=== PATIENT | female | born 1935 | race Caucasian/White ===

== ENCOUNTER 2016-11-12 10:37 | Emergency (ER) | payer OTHER, MEDICARE ==
--- NOTE | 2016-11-12 10:47 | EDM.PDOC ---
ED HPI GENERAL MEDICAL PROBLEM - General Chief Complaint: Trauma Stated Complaint: TRIPPED OVER RUG, HUGE LUMP OVER RT EYE Time Seen by Provider: 11/12/16 10:46 Source of Information: Reports: Patient, Family, RN, RN Notes Reviewed History Limitations: Reports: No Limitations - History of Present Illness INITIAL COMMENTS - FREE TEXT/NARRATIVE: Arrived from home by POV with c/o a head injury sustained at work from a ground level fall approx. 1 hour ago. Pt states that she did not have a LOC. She tripped in her home and hit her head on the floor. She could not get up on her own, but had her phone with her and called 911 and called her son. Pt declined ambulance transfer and came to the ER ambulatory arriving to registration at 1037HRS. Pt was brought to triage in ER and it was determined that pt is anticoagulated on Plavix, at which time the RN made the pt a Trauma Code at 1044HRS. Pt denies N/V, neck or back pain, visual changes, leak of clear or bloody fluid from the ears or nose, or any other injuries. Onset: Today Onset Date: 11/12/16 Duration: Constant Location: Reports: Head, Face Quality: Reports: Ache Severity: Moderate Improves with: Reports: None Worsens with: Reports: None Context: Reports: Trauma Associated Symptoms: Reports: No Other Symptoms - Related Data Allergies Allergy/AdvReac Type Severity Reaction Status Date / Time atorvastatin calcium Allergy Unknown Swelling Verified 04/10/16 09:34 [From Lipitor] diphtheria,pertussis Allergy Unknown Itching Verified 04/10/16 09:34 (acellular),te [From Adacel(Tdap Adolesn/Adult)(PF)] fluvastatin Allergy Unknown UNKNOWN Verified 04/10/16 09:34 quinapril HCl [From Accupril] Allergy Unknown UNKNOWN Verified 04/10/16 09:34 rosuvastatin calcium Allergy Unknown UNKNOWN Verified 04/10/16 09:34 [From Crestor] CALCIUM CONTAINING COMPOUNDS Allergy Unknown UNKNOWN Uncoded 04/10/16 09:34 Home Meds: Home Meds Acetaminophen 650 mg PO Q4H PRN 02/24/16 [History] Clopidogrel [Plavix] 75 mg PO DAILY 02/24/16 [History] Cranberry Conc/C/Bacill Coag [Cranberry Tablet] 1 tab PO BID 02/24/16 [History] Ergocalciferol (Vitamin D2) [Vitamin D] 1 tab PO DAILY 02/24/16 [History] Ezetimibe/Simvastatin [Vytorin 10-20 mg Tablet] 1 tab PO DAILY 02/24/16 [History ] Ferrous Sulfate 325 mg PO DAILY 02/24/16 [History] Glimepiride [Amaryl] 4 mg PO BID 02/24/16 [History] Insulin Glargine,Hum.Rec.Anlog [Lantus Solostar] 24 units SQ BEDTIME 02/24/16 [ History] Multivitamin [Multivitamins] 1 tab PO DAILY 02/24/16 [History] Sertraline [Zoloft] 25 mg PO DAILY 02/24/16 [History] Calcium Carb/Vitamin D3/Vit K1 [Viactiv Soft Chew] 1 tab PO BID 03/20/16 [ History] Valsartan [Diovan] 160 mg PO DAILY 03/20/16 [History] Furosemide [Furosemide] 20 mg PO DAILY 04/02/16 [History] Potassium Chloride [Klor-Con M20] 10 meq PO DAILY 04/02/16 [History] Past Medical History HEENT History: Reports: Other (See Below) Other HEENT History: hx of nose bleeds- is on plavix Cardiovascular History: Reports: Heart Failure, Hypertension, OK, Stents Other Cardiovascular History: OK on 02/24/16 Respiratory History: Reports: None Gastrointestinal History: Reports: Diverticulosis, Hemorrhoids Genitourinary History: Reports: Chronic Renal Insuffiency, UTI, Recurrent, Other (See Below) Other Genitourinary History: CKD Stage 3 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 Musculoskeletal History: Reports: Gout Neurological History: Reports: Other (See Below) Psychiatric History: Reports: Depression Endocrine/Metabolic History: Reports: Diabetes, Type I Hematologic History: Reports: Anemia Immunologic History: Reports: None Oncologic (Cancer) History: Reports: Other (See Below) Other Oncologic History: Adenocarcinoma NOS Dermatologic History: Reports: None - Infectious Disease History Infectious Disease History: Reports: Chicken Pox, Measles, Mumps - Past Surgical History Head Surgeries/Procedures: Reports: None Respiratory Surgical History: Reports: Lung Resection Other Respiratory Surgeries/Procedures: 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 ED EXAM, GENERAL - Physical Exam Exam: See Below Free Text/Narrative:: PRIMARY TRAUMA SURVEY: Arrives by POV without immobilization on long spinal board, c-collar, and without head blocked or strapped for immobilization. A C- collar was promptly applied by the RN. Pt awake, alert, oriented to person, place, and date. Patent nasal and oral airways. Conversant with clear speech. Spontaneous respirations, with lungs CTA B/L. Good color, no cyanosis, intact peripheral pulses at all 4 distal extremities, normal capillary refill time at all four extremities distal digits. Heart RRR, no murmur, no rub. No bleeding. No upper or lower extremity pain on primary survey, and no obvious deformity, lacerations, abrasions, swelling, bruising, discoloration, or other signs of injury to the extremities. Sol pelvis intact, stable and non-tender. Abdomen benign to exam. Chest non-tender anteriorly, no flail chest, crepitus, or subcutaneous emphysema. CN II-XII intact, GCS 15 on arrival, no motor or sensory deficits. Large tender hematoma approx. 5.5cm diameter to Rt forehead, 3cm diameter hematoma to left forehead, and a 4cm diameter area of hematoma to Rt infrazygomal face. Remaining skin clean, dry, warm, and intact. Pt was logged rolled with maintenance of c-spine immobilization. No visible injury to back, no vertebral sol tenderness, and pt returned via log roll to supine position on firm foam padded ER gurney. SECONDARY TRAUMA SURVEY FOLLOWS: Exam Limited By: No Limitations General Appearance: Alert, WD/WN, No Apparent Distress, Obese Eye Exam: Bilateral Eye: EOMI, Normal Fundi, Normal Inspection, PERRL Ears: Normal External Exam, Normal Canal, Hearing Grossly Normal, Normal TMs, Other (no hemotympanum) Nose: Normal Inspection, Normal Mucosa, No Blood Throat/Mouth: Normal Inspection, Normal Lips, Normal Teeth, Normal Gums, Normal Oropharynx, Normal Voice, No Airway Compromise Head: Atraumatic, Normocephalic Neck: Normal Inspection, Supple, Non-Tender, Full Range of Motion, Other (C- spine cleared by CT exam prior to complete exam) Respiratory/Chest: No Respiratory Distress, Lungs Clear, Normal Breath Sounds, No Accessory Muscle Use, Chest Non-Tender Cardiovascular: Normal Peripheral Pulses, Regular Rate, Rhythm, No Edema, No Gallop, No JVD, No Murmur, No Rub, Other (Pt remained in sinus rhythm on environmental monitoring technician throughout the ER stay.) Peripheral Pulses: 3+: Radial (L), Radial (R), Dorsalis Pedis (L), Dorsalis Pedis (R) GI/Abdominal: Normal Bowel Sounds, Soft, Non-Tender, No Distention, No Abnormal Bruit, Other (benign obese abdomen) (Female) Exam: Deferred Rectal (Female) Exam: Deferred Back Exam: Normal Inspection, Full Range of Motion, NT Extremities: No Pedal Edema, Normal Capillary Refill, Limited Range of Motion ( chronic decrease ROM of left shoulder w/no acute changes per pt. Rt shoulder with mild tenderness to palpation, no visible bruising, swelling, or deformity, moderate actue decreased ROM due to pain, skin is intact.). No: Joint Swelling , Leg Pain, Increased Warmth Neurological: Alert, Oriented, CN II-XII Intact, Normal Cognition, Normal Gait, Normal Reflexes, No Motor/Sensory Deficits, Other (GCS 15 at 30 minute recheck. GCS 15 at discharge.) Psychiatric: Normal Affect, Normal Mood Skin Exam: Warm, Dry, Intact Course - Vital Signs Last Recorded V/S: Last Vital Signs Temp 36.7 C 11/12/16 10:45 Pulse 86 11/12/16 11:15 Resp 18 11/12/16 11:15 BP 161/59 H 11/12/16 11:15 Pulse Ox 96 11/12/16 11:15 - Orders/Labs/Meds Labs: Laboratory Tests 11/12/16 11/12/16 11/12/16 Range/Units 10:52 10:52 10:52 WBC 9.8 (5.0-10.0) 10^3/uL RBC 3.98 L (4.2-5.4) 10^6/uL Hgb 11.7 L (12.0-16.0) g/dL Hct 35.8 L (37.0-47.0) % MCV 89.9 (80-100) fL MCH 29.4 (27.0-34.0) pg MCHC 32.7 L (33.0-35.0) g/dL Plt Count 229 (150-450) 10^3/uL Neut % (Auto) 81.0 H (42.2-75.2) % Lymph % (Auto) 10.2 L (20.5-50.1) % [place] % (Auto) 7.4 (2-8) % Eos % (Auto) 1.3 (1.0-3.0) % Baso % (Auto) 0.1 (0.0-1.0) % PT 10.6 (9.0-12.0) SEC INR 1.1 (0.9-1.2) APTT 25.9 (22.0-34.0) SEC Sodium 137 (135-145) mmol/L Potassium 4.1 (3.6-5.0) mmol/L Chloride 103 (101-111) mmol/L Carbon Dioxide 22.0 (21.0-31.0) mmol/L Anion Gap 16.1 BUN 20 H (7-18) mg/dL Creatinine 1.1 (0.6-1.3) mg/dL Est Cr Clr Drug Dosing TNP Estimated GFR (MDRD) 48 BUN/Creatinine Ratio 18.18 Glucose 294 H (74-105) mg/dL Calcium 8.9 (8.4-10.2) mg/dl Total Bilirubin 0.9 (0.2-1.0) mg/dL AST 47 H (10-42) IU/L ALT 33 (10-60) IU/L Alkaline Phosphatase 78 (42-121) IU/L Troponin I 0.02 (0.00-0.02) ng/ml Total Protein 7.2 (6.7-8.2) g/dl Albumin 3.8 (3.2-5.5) g/dl Globulin 3.4 Albumin/Globulin Ratio 1.12 Amylase 44 (28-100) U/L Lipase 19 L (22-51) U/L Urine Color (YELLOW) Urine Appearance (CLEAR) Urine pH (5.0-9.0) Ur Specific [place] (1.005-1.030) Urine Protein (NEGATIVE) Urine Glucose (UA) (NEGATIVE) Urine Ketones (NEGATIVE) Urine Occult Blood (NEGATIVE) Urine Nitrite (NEGATIVE) Urine Bilirubin (NEGATIVE) Urine Urobilinogen (0.2-1.0) mg/dL Ur Leukocyte Esterase (NEGATIVE) Urine RBC /HPF Urine WBC (0-5/HPF) /HPF Ur Epithelial Cells /HPF Urine Bacteria (0-FEW/HPF) /HPF Urine Opiates Screen (NEGATIVE) Ur Oxycodone Screen (NEGATIVE) Urine Methadone Screen (NEGATIVE) Ur Barbiturates Screen (NEGATIVE) U Tricyclic Antidepress (NEGATIVE) Ur Phencyclidine Scrn (NEGATIVE) Ur Amphetamine Screen (NEGATIVE) U Methamphetamines Scrn (NEGATIVE) Urine MDMA Screen (NEGATIVE) U Benzodiazepines Scrn (NEGATIVE) Urine Cocaine Screen (NEGATIVE) U Marijuana (THC) Screen (NEGATIVE) Ethyl Alcohol < 5 mg/dL 11/12/16 11/12/16 Range/Units 11:51 11:51 WBC (5.0-10.0) 10^3/uL RBC (4.2-5.4) 10^6/uL Hgb (12.0-16.0) g/dL Hct (37.0-47.0) % MCV (80-100) fL MCH (27.0-34.0) pg MCHC (33.0-35.0) g/dL Plt Count (150-450) 10^3/uL Neut % (Auto) (42.2-75.2) % Lymph % (Auto) (20.5-50.1) % [place] % (Auto) (2-8) % Eos % (Auto) (1.0-3.0) % Baso % (Auto) (0.0-1.0) % PT (9.0-12.0) SEC INR (0.9-1.2) APTT (22.0-34.0) SEC Sodium (135-145) mmol/L Potassium (3.6-5.0) mmol/L Chloride (101-111) mmol/L Carbon Dioxide (21.0-31.0) mmol/L Anion Gap BUN (7-18) mg/dL Creatinine (0.6-1.3) mg/dL Est Cr Clr Drug Dosing Estimated GFR (MDRD) BUN/Creatinine Ratio Glucose (74-105) mg/dL Calcium (8.4-10.2) mg/dl Total Bilirubin (0.2-1.0) mg/dL AST (10-42) IU/L ALT (10-60) IU/L Alkaline Phosphatase (42-121) IU/L Troponin I (0.00-0.02) ng/ml Total Protein (6.7-8.2) g/dl Albumin (3.2-5.5) g/dl Globulin Albumin/Globulin Ratio Amylase (28-100) U/L Lipase (22-51) U/L Urine Color Yellow (YELLOW) Urine Appearance Slightly cloudy (CLEAR) Urine pH 6.0 (5.0-9.0) Ur Specific [place] 1.015 (1.005-1.030) Urine Protein Negative (NEGATIVE) Urine Glucose (UA) 250 H (NEGATIVE) Urine Ketones Negative (NEGATIVE) Urine Occult Blood Trace-lysed H (NEGATIVE) Urine Nitrite Positive H (NEGATIVE) Urine Bilirubin Negative (NEGATIVE) Urine Urobilinogen 0.2 (0.2-1.0) mg/dL Ur Leukocyte Esterase Large H (NEGATIVE) Urine RBC 0-5 /HPF Urine WBC 50-75 H (0-5/HPF) /HPF Ur Epithelial Cells Few /HPF Urine Bacteria Many H (0-FEW/HPF) /HPF Urine Opiates Screen Negative (NEGATIVE) Ur Oxycodone Screen Negative (NEGATIVE) Urine Methadone Screen Negative (NEGATIVE) Ur Barbiturates Screen Negative (NEGATIVE) U Tricyclic Antidepress Negative (NEGATIVE) Ur Phencyclidine Scrn Negative (NEGATIVE) Ur Amphetamine Screen Negative (NEGATIVE) U Methamphetamines Scrn Negative (NEGATIVE) Urine MDMA Screen Negative (NEGATIVE) U Benzodiazepines Scrn Negative (NEGATIVE) Urine Cocaine Screen Negative (NEGATIVE) U Marijuana (THC) Screen Negative (NEGATIVE) Ethyl Alcohol mg/dL Meds: Medications Discontinued Medications Generic Name Dose Route Start Last Admin Trade Name Freq PRN Reason Stop Dose Admin Hydromorphone HCl 0.5 mg 11/12/16 11:33 11/12/16 11:52 Dilaudid IM 11/12/16 11:34 0.5 mg ONETIME ONE Administration Ondansetron HCl 4 mg 11/12/16 11:33 11/12/16 11:54 Zofran Odt PO 11/12/16 11:34 4 mg ONETIME ONE Administration Sodium Chloride 10 ml 11/12/16 10:48 Saline Flush FLUSH ASDIRECTED PRN Keep Vein Open - Radiology Interpretation Free Text/Narrative:: CT spine: No evidence of cervical spine fracture. See rad report. CT head: There is moderate soft tissue swelling over the right frontal bone with 4.5 x 1.5cm soft tissue hematoma and age-related changes but no evidence of acute intracranial pathology. See rad report. Departure - Departure Time of Disposition: 12:33 Disposition: Home, Self-Care 01 Condition: Fair Clinical Impression: Work related injury Traumatic hematoma of forehead Qualifiers: Encounter type: initial encounter Qualified Code(s): S00.83XA - Contusion of other part of head, initial encounter Concussion without loss of consciousness Qualifiers: Encounter type: initial encounter Qualified Code(s): S06.0X0A - Concussion without loss of consciousness, initial encounter Injury of right rotator cuff Qualifiers: Encounter type: initial encounter Qualified Code(s): S46.001A - Unspecified injury of muscle(s) and tendon(s) of the rotator cuff of right shoulder, initial encounter - Discharge Information Instructions: Hematoma, [id number], Concussion, Adult, [id number], Rotator Cuff Injury, Fall Prevention in the Home, [id number] Referrals: Micheal Muro MD [Primary Care Provider] - Forms: ED Department Discharge Additional Instructions: Rest, light activity only for 2 weeks. Apply ice packs to forehead to reduce pain and swelling. Follow up in clinic in 5 to 7 days for recheck. Rx: Auxier 5mg/325mg *Do not drive while under the influence of this medication.
[2016-11-12] MEDS ORDERED: Sodium Chloride 0.9% 10 ML Syringe FLUSH PRN (10:48)
[2016-11-12 11:19] LABS: CHLORIDE,CL 103 mmol/L (101-111); SODIUM,NA 137 mmol/L (135-145)
[2016-11-12] MEDS ORDERED: Ondansetron 4 MG Tab.DIS PO ONE (11:33)
[2016-11-12] MEDS ORDERED: HYDROmorphone 1 MG/ML Syringe IM ONE (11:33)
[2016-11-12 11:37] VITALS: BP 161/59
--- NOTE | 2016-11-12 12:21 | CR ---
Clinical history: 81-year-old female injured right shoulder (fall) now experiencing pain Interpretation: Abnormal. The humeral head is elevated relative to the glenoid of the scapula suggesting rotator cuff impingem ent or tear. No juxta-articular rotator cuff tendon calcifications. Hill-Sachs notch like deformity lateral aspect of the humeral head but no sign of acute right should er fracture, glenohumeral dislocation or acromioclavicular separation. Right lung apex is clear.
== END 2016-11-12 12:43 | disposition home or self-care (01) ==
LOC: DL.ED 10:37
DX: S06.0X0A Concussion without loss of consciousness, initial encounter (principal); S00.83XA Contusion of other part of head, initial encounter; S46.001A Unspecified injury of muscle(s) and tendon(s) of the rotator cuff of right shoulder, initial encounter; I13.0 Hypertensive heart and chronic kidney disease with heart failure and stage 1 through stage 4 chronic kidney disease, or unspecified chronic kidney disease; I50.9 Heart failure, unspecified; I25.2 Old myocardial infarction; N18.3 Chronic kidney disease, stage 3 (moderate); E10.22 Type 1 diabetes mellitus with diabetic chronic kidney disease; D64.9 Anemia, unspecified; F32.9 Major depressive disorder, single episode, unspecified; M10.9 Gout, unspecified; Z88.8 Allergy status to other drugs, medicaments and biological substances; Z79.4 Long term (current) use of insulin; Z95.5 Presence of coronary angioplasty implant and graft; Z87.440 Personal history of urinary (tract) infections; Y99.0 Civilian activity done for income or pay; Z79.899 Other long term (current) drug therapy
CPT/HCPCS: 36415; 70450; 72125; 73030; 80053; 80305; 81001; 82150; 83690; 84484; 85025; 85610; 85730; 96374; 96375; 99284; A9270; G0480; J1170

== ENCOUNTER 2020-03-19 16:57 | Emergency (ER) | payer MEDICARE ==
[2020-03-19 17:23] VITALS: BP 124/66; PULSE 90
--- NOTE | 2020-03-19 17:42 | EDM.PDOC ---
<Malik Montilla - Last Filed: 03/19/20 19:07> ED HPI GENERAL MEDICAL PROBLEM - General Chief Complaint: Respiratory Problem Stated Complaint: BREATHING, HYPERVENTALATING Time Seen by Provider: 03/19/20 17:41 - Related Data Allergies Allergy/AdvReac Type Severity Reaction Status Date / Time atorvastatin calcium Allergy Unknown Swelling Verified 03/19/20 17:23 [From Lipitor] diphtheria,pertussis Allergy Unknown Itching Verified 03/19/20 17:23 (acellular),te [From Adacel(Tdap Adolesn/Adult)(PF)] fluvastatin Allergy Unknown UNKNOWN Verified 03/19/20 17:23 quinapril HCl [From Accupril] Allergy Unknown UNKNOWN Verified 03/19/20 17:23 rosuvastatin calcium Allergy Unknown UNKNOWN Verified 03/19/20 17:23 [From Crestor] CALCIUM CONTAINING COMPOUNDS Allergy Unknown UNKNOWN Uncoded 03/19/20 17:23 Home Meds: Home Meds Ezetimibe/Simvastatin [Vytorin 10-20 mg Tablet] 1 tab PO DAILY 02/24/16 [History] Ferrous Sulfate 325 mg PO DAILY 02/24/16 [History] Glimepiride [Amaryl] 4 mg PO BID 02/24/16 [History] Multivitamin [Multivitamins] 1 tab PO DAILY 02/24/16 [History] Sertraline [Zoloft] 25 mg PO DAILY 02/24/16 [History] Calcium Carb/Vitamin D3/Vit K1 [Viactiv Soft Chew] 1 tab PO BID 03/20/16 [History] Aspirin [Adult Low Dose Aspirin EC] 81 mg PO DAILY 11/21/18 [History] Chlorthalidone 25 mg PO DAILY 11/21/18 [History] Isosorbide Mononitrate [Imdur] 60 mg PO DAILY 11/21/18 [History] Levofloxacin [Levaquin] 500 mg PO DAILY 11/21/18 [History] Losartan [Cozaar] 100 mg PO DAILY 11/21/18 [History] amLODIPine [Norvasc] 5 mg PO DAILY 11/21/18 [History] carvediloL [Carvedilol] 12.5 mg PO DAILY 11/21/18 [History] Ezetimibe/Simvastatin [Ezetimibe-Simvastatin 10-20 mg] 01/03/19 [History] Warfarin [Coumadin] 2 mg PO DAILY 01/03/19 [History] Departure - Departure Disposition: Home, Self-Care 01 Clinical Impression: UTI (urinary tract infection) Qualifiers: Urinary tract infection type: site unspecified Hematuria presence: with hematuria Qualified Code(s): N39.0 - Urinary tract infection, site not specified - Discharge Information Instructions: Urinary Tract Infection, Adult, [id number] Referrals: Dasha Best NP [Primary Care Provider] - Forms: ED Department Discharge Additional Instructions: Drink plenty of water Rx: Cephalexin for 7 days Follow-up with your primary care provider if no improvement Return to the ER with any worsening of symptoms <Cherri Marin - Last Filed: 03/20/20 07:58> ED HPI GENERAL MEDICAL PROBLEM - General Source of Information: Reports: Patient, RN, RN Notes Reviewed - History of Present Illness INITIAL COMMENTS - FREE TEXT/NARRATIVE: Patient is an 85-year-old female who presents to the ER with vague complaints of feeling "off". Patient states she has felt a little off all day today. Her daughter told her that she was hyperventilating or breathing fast. Oxygen saturations have been okay. Patient denies any fever chills, nausea, vomiting, diarrhea, chest pains, shortness of breath. Patient states she attributes her feeling "off" to "change of life". Patient denies any urinary symptoms, frequency, urgency, burning with urination Onset: Gradual Past Medical History HEENT History: Reports: Impaired Vision, Other (See Below) Other HEENT History: hx of nose bleeds- is on plavix, wears glasses Cardiovascular History: Reports: Heart Failure, Hypertension, [place], Stents Other Cardiovascular History: [place] on 02/24/16 Respiratory History: Reports: None Gastrointestinal History: Reports: Diverticulosis, Hemorrhoids Genitourinary History: Reports: Chronic Renal Insuffiency, UTI, Recurrent, Other (See Below) Other Genitourinary History: CKD Stage 3 [employer] History: Reports: None Musculoskeletal History: Reports: Gout Neurological History: Reports: Other (See Below) Other Neuro History: Patient reports "mini stroke" 11/21/2018 Psychiatric History: Reports: Depression Endocrine/Metabolic History: Reports: Diabetes, Type I Hematologic History: Reports: Anemia Immunologic History: Reports: None Oncologic (Cancer) History: Reports: Other (See Below) Other Oncologic History: Adenocarcinoma NOS Dermatologic History: Reports: None - Infectious Disease History Infectious Disease History: Reports: Chicken Pox, Measles, Mumps - Past Surgical History Head Surgeries/Procedures: Reports: None Respiratory Surgical History: Reports: Lung Resection Other Respiratory Surgeries/Procedures: 1/ left lung removed Social & Family History - Family History Family Medical History: No Pertinent Family History - Tobacco Use Tobacco Use Status *Q: Never Tobacco User Second Hand Smoke Exposure: No - Caffeine Use Caffeine Use: Reports: Soda Caffeine Use Comment: soda occasionally - Recreational Drug Use Recreational Drug Use: No - Living Situation & Occupation Living situation: Reports: , with Spouse Occupation: Employed ED ROS GENERAL - Review of Systems Review Of Systems: Comprehensive ROS is negative, except as noted in HPI. ED EXAM, GENERAL - Physical Exam Exam: See Below Exam Limited By: No Limitations General Appearance: Alert, WD/WN, No Apparent Distress Eye Exam: Bilateral Eye: EOMI, Normal Inspection Ears: Normal External Exam, Hearing Grossly Normal Nose: Normal Inspection Throat/Mouth: Normal Inspection, Normal Voice, No Airway Compromise Head: Atraumatic, Normocephalic Neck: Normal Inspection, Supple, Non-Tender, Full Range of Motion Respiratory/Chest: No Respiratory Distress, Lungs Clear, Normal Breath Sounds, No Accessory Muscle Use, Chest Non-Tender Cardiovascular: Normal Peripheral Pulses, Regular Rate, Rhythm, No Edema, No Gallop, No JVD, No Murmur, No Rub Peripheral Pulses: 2+: Radial (L), Radial (R) GI/Abdominal: Normal Bowel Sounds, Soft, Non-Tender (Female) Exam: Deferred Rectal (Female) Exam: Deferred Back Exam: Normal Inspection, Full Range of Motion, NT Extremities: Normal Inspection, Normal Range of Motion, Non-Tender, Normal Capil grover Refill, No Pedal Edema Neurological: Alert, Oriented, CN II-XII Intact, Normal Cognition, Normal Gait, Normal Reflexes, No Motor/Sensory Deficits Psychiatric: Normal Affect, Normal Mood Skin Exam: Warm, Dry, Intact, Normal Color, No Rash Lymphatic: No Adenopathy Course - Vital Signs Last Recorded V/S: Last Vital Signs Temp 98.7 F 03/19/20 17:18 Pulse 90 03/19/20 17:18 Resp 26 H 03/19/20 17:18 BP 124/66 03/19/20 17:18 Pulse Ox 99 03/19/20 17:18 - Orders/Labs/Meds Orders: Active Orders 24 hr Category Date Time Status CULTURE URINE [RM] Routine Lab 03/19/20 18:01 Results Labs: Laboratory Tests 03/19/20 03/19/20 03/19/20 Range/Units 17:52 17:52 17:52 WBC 7.1 (5.0-10.0) 10^3/uL RBC 3.95 L (4.2-5.4) 10^6/uL Hgb 11.9 L (12.0-16.0) g/dL Hct 35.6 L (37.0-47.0) % MCV 90.1 (80-100) fL MCH 30.1 (27.0-34.0) pg MCHC 33.4 (33.0-35.0) g/dL Plt Count 225 (150-450) 10^3/uL Neut % (Auto) 69.3 (42.2-75.2) % Lymph % (Auto) 18.5 L (20.5-50.1) % Isabel[place] % (Auto) 10.0 H (2-8) % Eos % (Auto) 2.1 (1.0-3.0) % Baso % (Auto) 0.1 (0.0-1.0) % PT 10.5 (9.0-12.0) SEC INR 1.1 (0.9-1.2) Sodium 139 (136-145) mmol/L Potassium 4.1 (3.5-5.1) mmol/L Chloride 104 (98-107) mmol/L Carbon Dioxide 26 (21-32) mmol/L Anion Gap 13.1 H (7-13) mEq/L BUN 27 H (7-18) mg/dL Creatinine 1.33 H (0.55-1.02) mg/dL Est Cr Clr Drug Dosing 24.90 mL/min Estimated GFR (MDRD) 38 BUN/Creatinine Ratio 20.3 (No establ ref range) Glucose 171 H (74-99) mg/dL Calcium 8.6 (8.5-10.1) mg/dL Total Bilirubin 0.5 (0.2-1.0) mg/dL AST 22 (15-37) U/L ALT 35 (14-59) U/L Alkaline Phosphatase 91 (46-116) U/L Troponin I (0.000-0.056) ng/mL Total Protein 7.0 (6.4-8.2) g/dL Albumin 3.6 (3.4-5.0) g/dL Globulin 3.4 Albumin/Globulin Ratio 1.1 Urine Color (YELLOW) Urine Appearance (CLEAR) Urine pH (5.0-9.0) Ur Specific [place] (1.005-1.030) Urine Protein (NEGATIVE) Urine Glucose (UA) (NEGATIVE) Urine Ketones (NEGATIVE) Urine Occult Blood (NEGATIVE) Urine Nitrite (NEGATIVE) Urine Bilirubin (NEGATIVE) Urine Urobilinogen (0.2-1.0) mg/dL Ur Leukocyte Esterase (NEGATIVE) Urine RBC /HPF Urine WBC (0-5/HPF) /HPF Ur Epithelial Cells (NOT SEEN) /HPF Urine Bacteria (0-FEW/HPF) /HPF 03/19/20 03/19/20 Range/Units 17:52 18:01 WBC (5.0-10.0) 10^3/uL RBC (4.2-5.4) 10^6/uL Hgb (12.0-16.0) g/dL Hct (37.0-47.0) % MCV (80-100) fL MCH (27.0-34.0) pg MCHC (33.0-35.0) g/dL Plt Count (150-450) 10^3/uL Neut % (Auto) (42.2-75.2) % Lymph % (Auto) (20.5-50.1) % Isabela % (Auto) (2-8) % Eos % (Auto) (1.0-3.0) % Baso % (Auto) (0.0-1.0) % PT (9.0-12.0) SEC INR (0.9-1.2) Sodium (136-145) mmol/L Potassium (3.5-5.1) mmol/L Chloride (98-107) mmol/L Carbon Dioxide (21-32) mmol/L Anion Gap (7-13) mEq/L BUN (7-18) mg/dL Creatinine (0.55-1.02) mg/dL Est Cr Clr Drug Dosing mL/min Estimated GFR (MDRD) BUN/Creatinine Ratio (No establ ref range) Glucose (74-99) mg/dL Calcium (8.5-10.1) mg/dL Total Bilirubin (0.2-1.0) mg/dL AST (15-37) U/L ALT (14-59) U/L Alkaline Phosphatase (46-116) U/L Troponin I < 0.017 (0.000-0.056) ng/mL Total Protein (6.4-8.2) g/dL Albumin (3.4-5.0) g/dL Globulin Albumin/Globulin Ratio Urine Color Yellow (YELLOW) Urine Appearance Cloudy (CLEAR) Urine pH 5.5 (5.0-9.0) Ur Specific [place] 1.025 (1.005-1.030) Urine Protein 30 H (NEGATIVE) Urine Glucose (UA) Negative (NEGATIVE) Urine Ketones Negative (NEGATIVE) Urine Occult Blood Negative (NEGATIVE) Urine Nitrite Positive H (NEGATIVE) Urine Bilirubin Negative (NEGATIVE) Urine Urobilinogen 0.2 (0.2-1.0) mg/dL Ur Leukocyte Esterase Small H (NEGATIVE) Urine RBC 0-5 /HPF Urine WBC 20-30 H (0-5/HPF) /HPF Ur Epithelial Cells Few (NOT SEEN) /HPF Urine Bacteria Many H (0-FEW/HPF) /HPF Meds: Medications Discontinued Medications Generic Name Dose Route Start Last Admin Trade Name Freq PRN Reason Stop Dose Admin Cephalexin 500 mg 03/19/20 18:37 03/19/20 18:47 Keflex PO 03/19/20 18:38 500 mg ONETIME ONE Administration - Radiology Interpretation Free Text/Narrative:: Chest xray: PROCEDURE INFORMATION: Exam: XR Chest, 1 View Exam date and time: 03/19/2020 5:47 PM Age: 85 years old Clinical indication: Other: Chest pain TECHNIQUE: Imaging protocol: XR of the chest Views: 1 view. COMPARISON: CR Chest 1V Frontal 02/24/2016 8:51 AM FINDINGS: Lungs: No discrete lung infiltrates. Pleural space: Unremarkable. No pleural effusion. No pneumothorax. Heart/Mediastinum: Moderate enlargement of the cardiopericardial silhouette again noted. Vasculature: Calcified aorta. Bones/joints: Unremarkable. IMPRESSION: Enlarged cardiopericardial silhouette similar to prior study. No focal lung infiltrate. Thank you for allowing us to participate in the care of your patient. Dictated and Authenticated by: Philip Bravo MD 03/19/2020 5:56 PM Central Time ([place] & [place]) See rad report Departure - Departure Time of Disposition: 18:37 Condition: Good - Discharge Information *PRESCRIPTION DRUG MONITORING PROGRAM REVIEWED*: No *COPY OF PRESCRIPTION DRUG MONITORING REPORT IN PATIENT DOMINIC: No Sepsis Event Note (ED) - Evaluation Sepsis Screening Result: No Definite Risk - My Orders Last 24 Hours: My Active Orders 03/19/20 18:01 CULTURE URINE [RM] Routine - Assessment/Plan Last 24 Hours: My Active Orders 03/19/20 18:01 CULTURE URINE [RM] Routine
--- NOTE | 2020-03-19 17:56 | CR ---
PROCEDURE INFORMATION: Exam: XR Chest, 1 View Exam date and time: 03/19/2020 5:47 PM Age: 85 years old Clinical indication: Other: Chest pain TECHNIQUE: Imaging protocol: XR of the chest Views: 1 view. COMPARISON: CR Chest 1V Frontal 02/24/2016 8:51 AM FINDINGS: Lungs: No discrete lung infiltrates. Pleural space: Unremarkable. No pleural effusion. No pneumothorax. Heart/Mediastinum: Moderate enlargement of the cardiopericardial silhouette again noted. Vasculature: Calcified aorta. Bones/joints: Unremarkable. IMPRESSION: Enlarged cardiopericardial silhouette similar to prior study. No focal lung infiltrate.
[2020-03-19 18:28] LABS: ANION GAP 13.1 mEq/L (7-13)
[2020-03-19] MEDS ORDERED: Cephalexin 500 MG Cap PO ONE (18:37)
== END 2020-03-19 19:08 | disposition home or self-care (01) ==
LOC: DL.ED 16:57
DX: N39.0 Urinary tract infection, site not specified (principal); R31.9 Hematuria, unspecified; I13.0 Hypertensive heart and chronic kidney disease with heart failure and stage 1 through stage 4 chronic kidney disease, or unspecified chronic kidney disease; E10.22 Type 1 diabetes mellitus with diabetic chronic kidney disease; I50.9 Heart failure, unspecified; N18.30 Chronic kidney disease, stage 3 unspecified; F32.9 Major depressive disorder, single episode, unspecified; I25.2 Old myocardial infarction; Z95.5 Presence of coronary angioplasty implant and graft; Z88.8 Allergy status to other drugs, medicaments and biological substances; Z88.7 Allergy status to serum and vaccine; Z79.01 Long term (current) use of anticoagulants; Z79.82 Long term (current) use of aspirin; Z79.899 Other long term (current) drug therapy
CPT/HCPCS: 36415; 71045; 80053; 81001; 84484; 85025; 85610; 87086; 87088; 87186; 93005; 99284; A9270; 99283

== ENCOUNTER 2020-06-14 14:38 | Emergency (ER) | payer MEDICARE ==
--- NOTE | 2020-06-14 14:40 | EDM.PDOC ---
ED HPI GENERAL MEDICAL PROBLEM - General Chief Complaint: General Stated Complaint: AMBULANCE Time Seen by Provider: 06/14/20 14:39 Source of Information: Reports: Patient, EMS, Old Records, Provider (Dasha Best NP), RN, RN Notes Reviewed History Limitations: Reports: No Limitations - History of Present Illness INITIAL COMMENTS - FREE TEXT/NARRATIVE: Pt arrives from home by ambulance with c/o just not feeling well in general. Pt called Dasha Best NP and Dasha thought she sounded short of breath. The patient states she wanted to be seen in clinic because she "felt funny" today and yesterday and just wanted to be checked, but she was told to go to ER. Pt denies chest pain, headache, abdominal pain, back pain, cough, shortness of breath, dizziness, or any fall or injury. Pt denies n/v/d or dysuria. Pt states that nothing makes her fell better or worse. She reports having a good appetite, and normal bowel and bladder function. Duration: Day(s): (2) Location: Reports: Generalized Severity: Mild Improves with: Reports: None Worsens with: Reports: None Associated Symptoms: Reports: No Other Symptoms - Related Data Allergies Allergy/AdvReac Type Severity Reaction Status Date / Time atorvastatin calcium Allergy Unknown Swelling Verified 03/19/20 17:23 [From Lipitor] diphtheria,pertussis Allergy Unknown Itching Verified 03/19/20 17:23 (acellular),te [From Adacel(Tdap Adolesn/Adult)(PF)] fluvastatin Allergy Unknown UNKNOWN Verified 03/19/20 17:23 quinapril HCl [From Accupril] Allergy Unknown UNKNOWN Verified 03/19/20 17:23 rosuvastatin calcium Allergy Unknown UNKNOWN Verified 03/19/20 17:23 [From Crestor] CALCIUM CONTAINING COMPOUNDS Allergy Unknown UNKNOWN Uncoded 03/19/20 17:23 Home Meds: Home Meds Ezetimibe/Simvastatin [Vytorin 10-20 mg Tablet] 1 tab PO DAILY 02/24/16 [History] Ferrous Sulfate 325 mg PO DAILY 02/24/16 [History] Glimepiride [Amaryl] 4 mg PO BID 02/24/16 [History] Multivitamin [Multivitamins] 1 tab PO DAILY 02/24/16 [History] Sertraline [Zoloft] 25 mg PO DAILY 02/24/16 [History] Calcium Carb/Vitamin D3/Vit K1 [Viactiv Soft Chew] 1 tab PO BID 03/20/16 [History] Aspirin [Adult Low Dose Aspirin EC] 81 mg PO DAILY 11/21/18 [History] Chlorthalidone 25 mg PO DAILY 11/21/18 [History] Isosorbide Mononitrate [Imdur] 60 mg PO DAILY 11/21/18 [History] Levofloxacin [Levaquin] 500 mg PO DAILY 11/21/18 [History] Losartan [Cozaar] 100 mg PO DAILY 11/21/18 [History] amLODIPine [Norvasc] 5 mg PO DAILY 11/21/18 [History] carvediloL [Carvedilol] 12.5 mg PO DAILY 11/21/18 [History] Ezetimibe/Simvastatin [Ezetimibe-Simvastatin 10-20 mg] 01/03/19 [History] Warfarin [Coumadin] 2 mg PO DAILY 01/03/19 [History] Past Medical History HEENT History: Reports: Impaired Vision, Other (See Below) Other HEENT History: hx of nose bleeds- is on plavix, wears glasses Cardiovascular History: Reports: Heart Failure, Hypertension, [place], Stents Other Cardiovascular History: [place] on 02/24/16 Respiratory History: Reports: None Gastrointestinal History: Reports: Diverticulosis, Hemorrhoids Genitourinary History: Reports: Chronic Renal Insuffiency, UTI, Recurrent, Other (See Below) Other Genitourinary History: CKD Stage 3 [employer]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 Musculoskeletal History: Reports: Gout Neurological History: Reports: Other (See Below) Other Neuro History: Patient reports "mini stroke" 11/21/2018 Psychiatric History: Reports: Depression Endocrine/Metabolic History: Reports: Diabetes, Type I Hematologic History: Reports: Anemia Immunologic History: Reports: None Oncologic (Cancer) History: Reports: Other (See Below) Other Oncologic History: Adenocarcinoma NOS Dermatologic History: Reports: None - Infectious Disease History Infectious Disease History: Reports: Chicken Pox, Measles, Mumps - Past Surgical History Head Surgeries/Procedures: Reports: None Respiratory Surgical History: Reports: Lung Resection Other Respiratory Surgeries/Procedures: 1/ left lung removed Social & Family History - Family History Family Medical History: No Pertinent Family History - Caffeine Use Caffeine Use: Reports: Soda Caffeine Use Comment: soda occasionally - Living Situation & Occupation Living situation: Reports: , with Spouse Occupation: Employed ED ROS GENERAL - Review of Systems Review Of Systems: Comprehensive ROS is negative, except as noted in HPI. ED EXAM, GENERAL - Physical Exam Exam: See Below Exam Limited By: No Limitations General Appearance: Alert, WD/WN, No Apparent Distress Eye Exam: Bilateral Eye: Normal Inspection Nose: Normal Inspection Throat/Mouth: Normal Inspection, Normal Lips, Normal Voice, No Airway Compromise Head: Atraumatic, Normocephalic Neck: Normal Inspection, Supple, Non-Tender, Full Range of Motion Respiratory/Chest: No Respiratory Distress, Lungs Clear, No Accessory Muscle Use, Chest Non-Tender, Decreased Breath Sounds Cardiovascular: Regular Rate, Rhythm, No Edema GI/Abdominal: Normal Bowel Sounds, Soft, Non-Tender, Pelvis Stable. No: Gua rding, Rigid, Rebound Back Exam: Normal Inspection, Full Range of Motion. No: Vertebral Tenderness Extremities: Normal Inspection, Normal Range of Motion, Non-Tender, Normal Capillary Refill, No Pedal Edema Neurological: Alert, Oriented, CN II-XII Intact, Normal Cognition, Normal Gait, No Motor/Sensory Deficits Psychiatric: Normal Affect, Normal Mood Skin Exam: Warm, Dry, Intact, Normal Color, No Rash #1 Interpretation EKG Date: 06/14/20 Time: 14:38 Rhythm: Other (SR with single PVC) Rate (Beats/Min): 79 Sumner: LAD-Left Sumner Deviation P-Wave: Present QRS: Other (Inferior Q waves) ST-T: Normal QT: Normal IL/PQ Interval: 1st degree AVB Comparison: No Change Course - Vital Signs Last Recorded V/S: Last Vital Signs Temp 97 F 06/14/20 14:39 Pulse 83 06/14/20 14:39 Resp 18 06/14/20 14:39 BP 143/58 H 06/14/20 14:39 Pulse Ox 100 06/14/20 14:39 - Orders/Labs/Meds Orders: Active Orders 24 hr Category Date Time Status EKG 12 Lead [EKG Documentation Completion] [RC] STAT Care 06/14/20 14:40 Active CULTURE URINE [RM] Stat Lab 06/14/20 15:13 Received Labs: Laboratory Tests 06/14/20 06/14/20 06/14/20 Range/Units 14:53 14:53 15:13 WBC 5.0 (5.0-10.0) 10^3/uL RBC 4.09 L (4.2-5.4) 10^6/uL Hgb 12.2 (12.0-16.0) g/dL Hct 36.1 L (37.0-47.0) % MCV 88.3 (80-100) fL MCH 29.8 (27.0-34.0) pg MCHC 33.8 (33.0-35.0) g/dL Plt Count 215 (150-450) 10^3/uL Neut % (Auto) 70.5 (42.2-75.2) % Lymph % (Auto) 17.1 L (20.5-50.1) % [place] % (Auto) 9.4 H (2-8) % Eos % (Auto) 2.8 (1.0-3.0) % Baso % (Auto) 0.2 (0.0-1.0) % Sodium 141 (136-145) mmol/L Potassium 4.3 (3.5-5.1) mmol/L Chloride 104 (98-107) mmol/L Carbon Dioxide 28 (21-32) mmol/L Anion Gap 13.3 H (7-13) mEq/L BUN 19 H (7-18) mg/dL Creatinine 1.19 H (0.55-1.02) mg/dL Est Cr Clr Drug Dosing 29.11 mL/min Estimated GFR (MDRD) 43 BUN/Creatinine Ratio 16.0 (No establ ref range) Glucose 209 H (74-99) mg/dL Calcium 8.6 (8.5-10.1) mg/dL Total Bilirubin 0.7 (0.2-1.0) mg/dL AST 25 (15-37) U/L ALT 41 (14-59) U/L Alkaline Phosphatase 94 (46-116) U/L Troponin I < 0.017 (0.000-0.056) ng/mL B-Natriuretic Peptide 323 H (0-100) pg/ml Total Protein 7.1 (6.4-8.2) g/dL Albumin 3.3 L (3.4-5.0) g/dL Globulin 3.8 Albumin/Globulin Ratio 0.87 Urine Color Yellow (YELLOW) Urine Appearance Cloudy (CLEAR) Urine pH 7.0 (5.0-9.0) Ur Specific [place] 1.020 (1.005-1.030) Urine Protein Negative (NEGATIVE) Urine Glucose (UA) Negative (NEGATIVE) Urine Ketones Negative (NEGATIVE) Urine Occult Blood Trace-intact H (NEGATIVE) Urine Nitrite Negative (NEGATIVE) Urine Bilirubin Negative (NEGATIVE) Urine Urobilinogen 0.2 (0.2-1.0) mg/dL Ur Leukocyte Esterase Large H (NEGATIVE) Urine RBC 5-10 H /HPF Urine WBC >100 H (0-5/HPF) /HPF Ur Epithelial Cells Occasional (NOT SEEN) /HPF Amorphous Sediment Occasional (NOT SEEN) /HPF Urine Bacteria Few (0-FEW/HPF) /HPF Urine Mucus Rare (NOT SEEN) /LPF - Radiology Interpretation Free Text/Narrative:: CXR: no acute change, stable cardiac silhouette unchanged since 2019 per rad. report. - Re-Assessments/Exams Free Text/Narrative Re-Assessment/Exam: 06/14/20 16:01 Pt feels well. No shortness of breath or chest pain, oxygen sats. 99% on room air. Pt wishes to go home. Departure - Departure Time of Disposition: 16:02 Disposition: Home, Self-Care 01 Condition: Good Clinical Impression: Encounter for medical screening examination - Discharge Information *PRESCRIPTION DRUG MONITORING PROGRAM REVIEWED*: Not Applicable *COPY OF PRESCRIPTION DRUG MONITORING REPORT IN PATIENT DOMINIC: Not Applicable Instructions: Medical Screening Exam Forms: ED Department Discharge Additional Instructions: Follow up in clinic with your primary doctor within one week if needed. Sepsis Event Note (ED) - Focused Exam Vital Signs: Vital Signs Temp Pulse Resp BP Pulse Ox 06/14/20 14:39 97 F 83 18 143/58 H 100 - My Orders Last 24 Hours: My Active Orders 06/14/20 14:40 EKG 12 Lead [EKG Documentation Completion] [RC] STAT 06/14/20 15:13 CULTURE URINE [RM] Stat - Assessment/Plan Last 24 Hours: My Active Orders 06/14/20 14:40 EKG 12 Lead [EKG Documentation Completion] [RC] STAT 06/14/20 15:13 CULTURE URINE [RM] Stat
[2020-06-14 14:46] VITALS: BP 143/58; PULSE 83
[2020-06-14 15:23] LABS: ANION GAP 13.3 mEq/L (7-13); CHLORIDE,CL 104 mmol/L (98-107); SODIUM,NA 141 mmol/L (136-145)
--- NOTE | 2020-06-14 15:52 | CR ---
EXAMINATION: Chest 1V Frontal SEX: Female AGE: 85 years CLINICAL HISTORY: 85-year-old female with Shortness of breath (SOB). Comparison CXR exams 24 February 2016 and 19 March 2020. Interpretation: 1. Abnormal cardiac silhouette unchanged since previous exam 19 March 2020 (larger than 2016). 2. No new pulmonary vascular congestion, cephalization of flow, alveolar edema or dependent pleural fluid accumulation. 3. No new lung mass, hilar lymphadenopathy or focal lobar consolidation (alveolar infiltrate or atelectasis). 4. No peripheral "groundglass" interstitial lung densities. 5. No pneumothorax or pneumomediastinum. CONCLUSION: No acute new cardiopulmonary abnormality.
== END 2020-06-14 16:29 | disposition home or self-care (01) ==
LOC: DL.ED 14:38
DX: Z00.00 Encounter for general adult medical examination without abnormal findings (principal); I13.0 Hypertensive heart and chronic kidney disease with heart failure and stage 1 through stage 4 chronic kidney disease, or unspecified chronic kidney disease; I50.9 Heart failure, unspecified; N18.30 Chronic kidney disease, stage 3 unspecified; I25.2 Old myocardial infarction; Z95.5 Presence of coronary angioplasty implant and graft; Z79.82 Long term (current) use of aspirin; Z79.01 Long term (current) use of anticoagulants; Z79.84 Long term (current) use of oral hypoglycemic drugs; Z79.899 Other long term (current) drug therapy; Z88.7 Allergy status to serum and vaccine; Z88.8 Allergy status to other drugs, medicaments and biological substances; Z79.02 Long term (current) use of antithrombotics/antiplatelets
CPT/HCPCS: 36415; 71045; 80053; 81001; 83880; 84484; 85025; 87086; 87088; 87186; 93005; 99284-25

== ENCOUNTER 2020-08-27 19:22 | Emergency (ER) | payer MEDICARE ==
[2020-08-27 20:02] VITALS: BP 162/55; PULSE 81
--- NOTE | 2020-08-27 20:06 | CT ---
PROCEDURE INFORMATION: Exam: CT Head Without Contrast Exam date and time: 08/27/2020 7:49 PM Age: 85 years old Clinical indication: Injury or trauma; Fall; Abrasion; Head, generalized; Injury date: Today; Additional info: Fall, daily asa TECHNIQUE: Imaging protocol: Computed tomography of the head without contrast. Radiation optimization: All CT scans at this facility use at least one of these dose optimization techniques: automated exposure control; mA and/or kV adjustment per patient size (includes targeted exams where dose is matched to clinical indication); or iterative reconstruction. COMPARISON: CT Head wo Cont 05/23/2019 3:42 PM FINDINGS: Brain: Global cerebral atrophy. Moderate cerebellar atrophy. No hemorrhage. There is no cerebral edema. No midline shift. No intra-axial or extra-axial fluid collections. The basal cisterns are preserved. Chronic unchanged medial right occipital lobe chronic infarct with encephalomalacia. Bilateral periventricular hypodensities consistent with chronic microvascular ischemia. No mass effect. Bilateral vertebral artery moderate atherosclerotic calcification. Cerebral ventricles: Stable compensatory ventriculomegaly. Bones/joints: Unremarkable. No acute fracture. Paranasal sinuses: Visualized sinuses are unremarkable. No fluid levels. Mastoid air cells: Visualized mastoid air cells are well aerated. Soft tissues: Unremarkable. IMPRESSION: 1. Global cerebral atrophy and chronic white matter ischemic changes, with no evidence of an acute intracranial abnormality. 2. Chronic right occipital infarct and encephalomalacia.
--- NOTE | 2020-08-27 20:36 | EDM.PDOC ---
ED HPI GENERAL MEDICAL PROBLEM - General Chief Complaint: Head Injury Stated Complaint: FELL BACKWARDS AND HIT HEAD Time Seen by Provider: 08/27/20 19:35 Source of Information: Reports: Patient, Family History Limitations: Reports: No Limitations - History of Present Illness INITIAL COMMENTS - FREE TEXT/NARRATIVE: ED ambulatory with family, repots walking into apartment and lost balance fell backwards onto butt then hit back of head, no loss of consciousness. Prior remote CVA and poor balance. uses walker or cane. Son present stes going thru doorway and in a hurry and didn't wait for assistance. C/o lump to back of head. no dizziness, no nausea or vomiting. No weakness. no hip, pelvis or lower extremity pain. - Related Data Allergies Allergy/AdvReac Type Severity Reaction Status Date / Time atorvastatin calcium Allergy Unknown Swelling Verified 08/27/20 19:30 [From Lipitor] diphtheria,pertussis Allergy Unknown Itching Verified 08/27/20 19:30 (acellular),te [From Adacel(Tdap Adolesn/Adult)(PF)] fluvastatin Allergy Unknown UNKNOWN Verified 08/27/20 19:30 quinapril HCl [From Accupril] Allergy Unknown UNKNOWN Verified 08/27/20 19:30 rosuvastatin calcium Allergy Unknown UNKNOWN Verified 08/27/20 19:30 [From Crestor] CALCIUM CONTAINING COMPOUNDS Allergy Unknown UNKNOWN Uncoded 08/27/20 19:30 Home Meds: Home Meds Ezetimibe/Simvastatin [Vytorin 10-20 mg Tablet] 1 tab PO DAILY 02/24/16 [History] Ferrous Sulfate 325 mg PO DAILY 02/24/16 [History] Glimepiride [Amaryl] 4 mg PO BID 02/24/16 [History] Multivitamin [Multivitamins] 1 tab PO DAILY 02/24/16 [History] Sertraline [Zoloft] 25 mg PO DAILY 02/24/16 [History] Calcium Carb/Vitamin D3/Vit K1 [Viactiv Soft Chew] 1 tab PO BID 03/20/16 [History] Aspirin [Adult Low Dose Aspirin EC] 81 mg PO DAILY 11/21/18 [History] Chlorthalidone 25 mg PO DAILY 11/21/18 [History] Isosorbide Mononitrate [Imdur] 60 mg PO DAILY 11/21/18 [History] Levofloxacin [Levaquin] 500 mg PO DAILY 11/21/18 [History] Losartan [Cozaar] 100 mg PO DAILY 11/21/18 [History] amLODIPine [Norvasc] 5 mg PO DAILY 11/21/18 [History] carvediloL [Carvedilol] 12.5 mg PO DAILY 11/21/18 [History] Ezetimibe/Simvastatin [Ezetimibe-Simvastatin 10-20 mg] 01/03/19 [History] Warfarin [Coumadin] 2 mg PO DAILY 01/03/19 [History] Past Medical History HEENT History: Reports: Impaired Vision, Other (See Below) Other HEENT History: hx of nose bleeds- is on plavix, wears glasses Cardiovascular History: Reports: Heart Failure, Hypertension, [place], Stents Other Cardiovascular History: [place] on 02/24/16 Respiratory History: Reports: None Gastrointestinal History: Reports: Diverticulosis, Hemorrhoids Genitourinary History: Reports: Chronic Renal Insuffiency, UTI, Recurrent, Other (See Below) Other Genitourinary History: CKD Stage 3 ENVIRONMENTAL EPIDEMIOLOGIST History: Reports: None Musculoskeletal History: Reports: Gout Neurological History: Reports: Other (See Below) Other Neuro History: Patient reports "mini stroke" 11/21/2018 Psychiatric History: Reports: Depression Endocrine/Metabolic History: Reports: Diabetes, Type I Hematologic History: Reports: Anemia Immunologic History: Reports: None Oncologic (Cancer) History: Reports: Other (See Below) Other Oncologic History: Adenocarcinoma NOS Dermatologic History: Reports: None - Infectious Disease History Infectious Disease History: Reports: Chicken Pox, Measles, Mumps - Past Surgical History Head Surgeries/Procedures: Reports: None Respiratory Surgical History: Reports: Lung Resection Other Respiratory Surgeries/Procedures: 1/ left lung removed Social & Family History - Family History Family Medical History: No Pertinent Family History - Caffeine Use Caffeine Use: Reports: None Caffeine Use Comment: soda occasionally - Living Situation & Occupation Living situation: Reports: , with Spouse Occupation: Employed ED ROS GENERAL - Review of Systems Review Of Systems: Comprehensive ROS is negative, except as noted in HPI. ED EXAM, HEAD INJURY - Physical Exam Exam: See Below Exam Limited By: No Limitations General Appearance: Alert, No Apparent Distress, Thin Head: Normocephalic, Scalp Tenderness (upper occiptal) Nexus Criteria: No: Posterior, Midline Cervical Tenderness, Evidence of Intoxication, Altered Level of Consciousness, Focal Neurological Deficit, Painful Distraction Injuries Eyes: Bilateral Eye: EOMI, PERRL Ears: Normal External Exam, Hearing Loss Nose: Normal Inspection Throat/Mouth: Normal Inspection Neck: Non-Tender, Full Range of Motion, Normal Alignment, Normal Inspection Respiratory: No Respiratory Distress, Lungs Clear, Normal Breath Sounds Cardiovascular: Normal Peripheral Pulses, Regular Rate, Rhythm GI/Abdominal Exam: Normal Bowel Sounds Extremities: Normal Inspection, Normal Range of Motion, Pedal Edema (trace bilaterl) Neurologic: sedimentationist II-XII nml As Tested, Alert, Oriented x 3. No: Motor Weakness, Sensory Deficit Skin: Other (scalp contusion upper occipital) - [place] Coma Score Best Eye Response (Anastacia): (4) Open Spontaneously Best Verbal Response (Anastacia): (5) Oriented Best Motor Response ([place]): (6) Obeys Commands Course - Vital Signs Last Recorded V/S: Last Vital Signs Temp 98.4 F 08/27/20 19:30 Pulse 81 08/27/20 19:30 Resp 20 08/27/20 19:30 BP 162/55 H 08/27/20 19:30 Pulse Ox 98 08/27/20 19:30 Departure - Departure Time of Disposition: 20:32 Disposition: Home, Self-Care 01 Condition: Good Clinical Impression: Scalp contusion, Fall - Discharge Information *PRESCRIPTION DRUG MONITORING PROGRAM REVIEWED*: No *COPY OF PRESCRIPTION DRUG MONITORING REPORT IN PATIENT DOMINIC: No Instructions: Concussion, Adult, [id number], Facial or Scalp Contusion Forms: ED Department Discharge Additional Instructions: head injury instructions Urgent follow up, dizziness, headache confusion difficulty talking light activity use walker next couple days for improved balance change positions slowly cold pack to scalp tylenol 500mg every 6 hours as needed for discomfort Sepsis Event Note (ED) - Evaluation Sepsis Screening Result: No Definite Risk - Focused Exam Vital Signs: Vital Signs Temp Pulse Resp BP Pulse Ox 08/27/20 19:30 98.4 F 81 20 162/55 H 98
== END 2020-08-27 19:45 | disposition home or self-care (01) ==
LOC: DL.ED 19:22
DX: S00.03XA Contusion of scalp, initial encounter (principal); I13.0 Hypertensive heart and chronic kidney disease with heart failure and stage 1 through stage 4 chronic kidney disease, or unspecified chronic kidney disease; E10.22 Type 1 diabetes mellitus with diabetic chronic kidney disease; N18.30 Chronic kidney disease, stage 3 unspecified; I50.9 Heart failure, unspecified; I25.2 Old myocardial infarction; Z79.82 Long term (current) use of aspirin; Z79.01 Long term (current) use of anticoagulants; Z79.899 Other long term (current) drug therapy; W18.09XA Striking against other object with subsequent fall, initial encounter
CPT/HCPCS: 70450; 99282; 99283-25

== ENCOUNTER 2021-09-16 16:07 | Emergency (ER) | payer MEDICARE ==
[2021-09-16] MEDS ORDERED: Sodium Chloride 0.9% 10 ML Syringe FLUSH PRN (16:27)
[2021-09-16 16:56] VITALS: BP 160/122; PULSE 84
[2021-09-16 17:23] LABS: ANION GAP 14.1 mEq/L (7-13); CHLORIDE,CL 106 mmol/L (98-107); SODIUM,NA 143 mmol/L (136-145)
[2021-09-16 17:25] LABS: ESTIMATED GFR 38
[2021-09-16] MEDS ORDERED: Sodium Chloride 0.9% 1,000 ML IV ONE (17:38)
== END 2021-09-16 18:54 | disposition home or self-care (01) ==
LOC: DL.ED 16:07
DX: N39.0 Urinary tract infection, site not specified (principal); E86.0 Dehydration; I25.2 Old myocardial infarction; E10.22 Type 1 diabetes mellitus with diabetic chronic kidney disease; I13.0 Hypertensive heart and chronic kidney disease with heart failure and stage 1 through stage 4 chronic kidney disease, or unspecified chronic kidney disease; N18.30 Chronic kidney disease, stage 3 unspecified; I50.9 Heart failure, unspecified; Z95.5 Presence of coronary angioplasty implant and graft; Z88.8 Allergy status to other drugs, medicaments and biological substances; Z79.02 Long term (current) use of antithrombotics/antiplatelets; Z79.82 Long term (current) use of aspirin
CPT/HCPCS: 36415; 70450; 80053; 81001; 83735; 83880; 84443; 85025; 86140; 87086; 87088; 87186; 93005; 93010; 96360; 99284; J3490; J7030

== ENCOUNTER 2021-10-04 16:33 | Emergency (ER) | payer MEDICARE ==
[2021-10-04 19:15] VITALS: BP 113/89; PULSE 88
== END 2021-10-04 19:15 | disposition home or self-care (01) ==
LOC: DL.ED 16:33
DX: R42 Dizziness and giddiness (principal); E10.22 Type 1 diabetes mellitus with diabetic chronic kidney disease; I13.0 Hypertensive heart and chronic kidney disease with heart failure and stage 1 through stage 4 chronic kidney disease, or unspecified chronic kidney disease; N18.30 Chronic kidney disease, stage 3 unspecified; I50.9 Heart failure, unspecified; M10.9 Gout, unspecified; I25.2 Old myocardial infarction; Z88.8 Allergy status to other drugs, medicaments and biological substances; Z95.5 Presence of coronary angioplasty implant and graft; Z79.02 Long term (current) use of antithrombotics/antiplatelets; Z79.82 Long term (current) use of aspirin; Z79.4 Long term (current) use of insulin
CPT/HCPCS: 81001; 99284

== ENCOUNTER 2023-04-11 19:34 | Emergency (ER) | payer MEDICARE ==
[~2023-04-11 19:34] MED LIST: Sodium Chloride 0.9% 10 ML Syringe FLUSH PRN
[2023-04-11 20:06] LABS: BASOPHILS PERCENT AUTO 0.1 % (0.0-1.0); EOSINOPHILS PERCENT AUTO 1.9 % (1.0-3.0); HEMATOCRIT 33.4 % (37.0-47.0); LYMPHOCYTES PERCENT AUTO 22.3 % (20.5-50.1); MEAN CORPUSCULAR HEMOGLOBIN 31.4 pg (27.0-34.0); MEAN CORPUSCULAR HGB CONC 32.9 g/dL (33.0-35.0); MEAN CORPUSCULAR VOLUME 95.4 fL (80-100); MONOCYTES PERCENT AUTO 13.7 % (2-8); PLATELET COUNT,PLT 190 10^3/uL (150-450)
[2023-04-11 20:50] VITALS: BP 151/91; PULSE 74
[2023-04-11 21:22] LABS: ALANINE AMINOTRANSFERASE,ALT 31 U/L (14-59); ALBUMIN 3.4 g/dL (3.4-5.0); ALKALINE PHOSPHATASE 87 U/L (46-116); ANION GAP 13.4 mEq/L (7-13); ASPARTATE AMNIOTRANSFERASE,AST 17 U/L (15-37); BILIRUBIN TOTAL 0.6 mg/dL (0.2-1.0); BLOOD UREA NITROGEN,BUN 30 mg/dL (7-18); BUN/CREATININE RATIO 21.9 (No establ ref range); CALCIUM 8.7 mg/dL (8.5-10.1); CARBON DIOXIDE,CO2 27 mmol/L (21-32); CHLORIDE,CL 102 mmol/L (98-107); CREATINE KINASE,CK 22 U/L (16-191); CREATININE 1.37 mg/dL (0.55-1.02); EST CRCL DRUG DOSING (CG) 20.78 mL/min; GLUCOSE RANDOM 135 mg/dL (70-99); POTASSIUM,K 4.4 mmol/L (3.5-5.1); PROTEIN TOTAL,TP 6.8 g/dL (6.4-8.2); SODIUM,NA 138 mmol/L (136-145)
[2023-04-11 21:27] LABS: APPEARANCE,URINE SLIGHTLY CLOUDY (CLEAR); BILIRUBIN,URINE NEGATIVE (NEGATIVE); COLOR,URINE YELLOW (YELLOW); GLUCOSE,URINE NEGATIVE (NEGATIVE); KETONES,URINE NEGATIVE (NEGATIVE); LEUKOCYTE ESTERASE,URINE TRACE (NEGATIVE); NITRITE,URINE POSITIVE (NEGATIVE); OCCULT BLOOD,URINE MODERATE (NEGATIVE); PROTEIN,URINE NEGATIVE (NEGATIVE); UROBILINOGEN,URINE 0.2 mg/dL (0.2-1.0)
[2023-04-11 21:29] LABS: C-REACTIVE PROTEIN < 0.50 ng/dL (<=0.50); ESTIMATED GFR 37 mL/min (>=60)
[2023-04-11] MEDS ORDERED: Sodium Chloride 0.9% 1,000 ML IV ONE (21:31)
[2023-04-11] MEDS ORDERED: cefTRIAXone 1 GM Vial IVPUSH ONE (21:35)
[2023-04-11] MEDS ORDERED: Take Home: Amoxicillin/Clavulanate K 875-125 MG Tab, 6 Tab Pack PO ONE (21:47)
[2023-04-11 21:50] LABS: AMPHETAMINES,URINE NEGATIVE (NEGATIVE); BARBITURATES,URINE NEGATIVE (NEGATIVE); BENZODIAZEPINE,URINE NEGATIVE (NEGATIVE); MDMA (ECSTASY), URINE NEGATIVE (NEGATIVE); METHADONE,URINE NEGATIVE (NEGATIVE); METHAMPHETAMINES,URINE NEGATIVE (NEGATIVE); OPIATES,URINE NEGATIVE (NEGATIVE); OXYCODONE,URINE NEGATIVE (NEGATIVE); PHENCYCLIDINE,URINE NEGATIVE (NEGATIVE); TCA,URINE NEGATIVE (NEGATIVE)
[2023-04-11 22:01] LABS: BACTERIA,URINE MANY /HPF (0-FEW/HPF); EPITHELIAL CELLS,URINE MANY /HPF (NOT SEEN); RBC,URINE 20-30 /HPF (0-5)
== END 2023-04-11 22:57 | disposition home or self-care (01) ==
LOC: DL.ED 19:34
DX: N39.0 Urinary tract infection, site not specified (principal); I13.0 Hypertensive heart and chronic kidney disease with heart failure and stage 1 through stage 4 chronic kidney disease, or unspecified chronic kidney disease; I50.9 Heart failure, unspecified; I25.2 Old myocardial infarction; N18.30 Chronic kidney disease, stage 3 unspecified; E10.9 Type 1 diabetes mellitus without complications; Z79.82 Long term (current) use of aspirin; Z79.2 Long term (current) use of antibiotics; Z79.899 Other long term (current) drug therapy; Z88.7 Allergy status to serum and vaccine; Z88.8 Allergy status to other drugs, medicaments and biological substances
CPT/HCPCS: 36415; 70450; 73110-LT; 80053; 80305-QW; 81001; 82550; 82947; 83605; 83735; 84484; 85025; 86140; 87086; 93005; 93010; 96361; 96374; 99284; 99285-25; A9270-GY; J0696; J3490; J7030

== ENCOUNTER 2023-04-13 23:41 | Inpatient (IN) | payer MEDICARE ==
[2023-04-13 21:41] LABS: HEMATOCRIT 30.2 % (37.0-47.0); MEAN CORPUSCULAR HEMOGLOBIN 31.6 pg (27.0-34.0); MEAN CORPUSCULAR HGB CONC 33.1 g/dL (33.0-35.0); MEAN CORPUSCULAR VOLUME 95.6 fL (80-100); PLATELET COUNT,PLT 178 10^3/uL (150-450); RED BLOOD CELL COUNT 3.16 10^6/uL (4.2-5.4); WHITE BLOOD CELL COUNT,WBC 10.1 10^3/uL (5.0-10.0)
[2023-04-13 21:48] LABS: BASOPHILS PERCENT AUTO 0.1 % (0.0-1.0); EOSINOPHILS PERCENT AUTO 0.1 % (1.0-3.0); LYMPHOCYTES PERCENT AUTO 12.3 % (20.5-50.1); MONOCYTES PERCENT AUTO 16.5 % (2-8)
[2023-04-13 22:02] LABS: ALBUMIN 3.3 g/dL (3.4-5.0); ANION GAP 14.8 mEq/L (7-13); BILIRUBIN TOTAL 1.3 mg/dL (0.2-1.0); BUN/CREATININE RATIO 23.1 (No establ ref range); CALCIUM 8.8 mg/dL (8.5-10.1); CREATININE 1.69 mg/dL (0.55-1.02); EST CRCL DRUG DOSING (CG) 19.4 mL/min; POTASSIUM,K 4.8 mmol/L (3.5-5.1); PROTEIN TOTAL,TP 7.1 g/dL (6.4-8.2)
[2023-04-13] MEDS: Sodium Chloride 0.9% 10 ML Syringe FLUSH PRN (22:02)
[2023-04-13 22:05] LABS: A/G RATIO 0.87
[2023-04-13 22:27] LABS: APPEARANCE,URINE CLEAR (CLEAR); BILIRUBIN,URINE NEGATIVE (NEGATIVE); COLOR,URINE YELLOW (YELLOW); GLUCOSE,URINE NEGATIVE (NEGATIVE); KETONES,URINE NEGATIVE (NEGATIVE); LEUKOCYTE ESTERASE,URINE NEGATIVE (NEGATIVE); NITRITE,URINE NEGATIVE (NEGATIVE); OCCULT BLOOD,URINE TRACE-INTACT (NEGATIVE); PH,URINE 5.5 (5.0-9.0); PROTEIN,URINE NEGATIVE (NEGATIVE); UROBILINOGEN,URINE 0.2 mg/dL (0.2-1.0)
[2023-04-13 22:38] LABS: BAND PERCENT MAN 1 %; LYMPHOCYTES PERCENT MAN 11 % (20-50); MONOCYTES PERCENT MAN 12 % (2-8); SEG NEUTROPHILS PERCENT MAN 76 % (42-75)
[2023-04-13 22:40] LABS: BACTERIA,URINE FEW /HPF (0-FEW/HPF); EPITHELIAL CELLS,URINE FEW /HPF (NOT SEEN)
[2023-04-13 23:09] LABS: CORONAVIRUS COVID-19 NAA NEGATIVE (NEGATIVE); INFLUENZA A NAA NEGATIVE (NEGATIVE); INFLUENZA B NAA NEGATIVE (NEGATIVE); RESPIRATORY SYNCYTIAL VIR NAA NEGATIVE (NEGATIVE)
[~2023-04-13 23:41] MED LIST changes: -Sodium Chloride 0.9% 10 ML Syringe FLUSH PRN; +cefTRIAXone 1 GM Vial IVPUSH ONE
[2023-04-14] MEDS ORDERED: Ondansetron 4 MG/2 ML SDV IVPUSH PRN (01:35)
[2023-04-14] MEDS ORDERED: [UNRECOGNIZED DRUG - OTHER] PO SCH (09:30)
[2023-04-14] MEDS ORDERED: EZETIMIBE PO SCH (09:30)
[2023-04-14] MEDS ORDERED: SIMVASTATIN PO SCH (09:30)
[2023-04-14] MEDS ORDERED: [UNRECOGNIZED DRUG - OTHER] PO SCH (09:30)
[2023-04-14] MEDS: Sertraline 50 MG Tab PO SCH (09:53)
[2023-04-14] MEDS: Clopidogrel 75 MG Tab PO SCH (09:53)
[2023-04-14] MEDS: Spironolactone 25 MG Tab PO SCH (09:53)
[2023-04-14] MEDS: Aspirin 81 MG Tab.EC PO SCH (09:53)
[2023-04-14] MEDS: amLODIPine 5 MG Tab PO SCH (09:54)
[2023-04-14] MEDS: Calcium Carbonate/Vitamin D3 1250 MG-5 MCG Tab PO SCH (09:54)
[2023-04-14] MEDS: Glimepiride 2 MG Tab PO SCH ×2 (10:00→18:09)
[2023-04-14] MEDS: Carvedilol 6.25 MG Tab PO SCH ×2 (10:00→20:21)
[2023-04-14] MEDS: Heparin Sodium 5,000 Units/ML Vial SUBCUT SCH ×2 (13:56→21:01)
[2023-04-14] MEDS: Sodium Chloride 0.9% 1,000 ML IV SCH (13:56)
[2023-04-14] MEDS: Isosorbide Mononitrate 60 MG Tab.ER PO SCH (20:21)
[2023-04-14] MEDS: cefTRIAXone 1 GM Vial IVPUSH SCH (20:24)
[2023-04-15] MEDS: Heparin Sodium 5,000 Units/ML Vial SUBCUT SCH ×3 (05:04→21:07)
[2023-04-15] MEDS: Glimepiride 2 MG Tab PO SCH ×2 (09:20→17:26)
[2023-04-15] MEDS: Aspirin 81 MG Tab.EC PO SCH (09:20)
[2023-04-15] MEDS: Calcium Carbonate/Vitamin D3 1250 MG-5 MCG Tab PO SCH (09:20)
[2023-04-15] MEDS: Sertraline 50 MG Tab PO SCH (09:22)
[2023-04-15] MEDS: Clopidogrel 75 MG Tab PO SCH (09:23)
[2023-04-15] MEDS: Isosorbide Mononitrate 60 MG Tab.ER PO SCH ×2 (09:23→20:39)
[2023-04-15] MEDS: Ferrous Sulfate 325 MG Tab PO SCH (09:23)
[2023-04-15] MEDS: Spironolactone 25 MG Tab PO SCH (09:23)
[2023-04-15] MEDS: Multivitamin Tab PO SCH (09:23)
[2023-04-15] MEDS: Carvedilol 6.25 MG Tab PO SCH ×2 (09:24→20:39)
[2023-04-15] MEDS: amLODIPine 5 MG Tab PO SCH (09:25)
[2023-04-15] MEDS: Insulin Glarg,Human.Rec.Analog 100 Unit/ML 10 ML Vial SUBCUT SCH (09:25)
[2023-04-15 09:36] LABS: BASOPHILS PERCENT AUTO 0.2 % (0.0-1.0); EOSINOPHILS PERCENT AUTO 0.6 % (1.0-3.0); HEMATOCRIT 29.2 % (37.0-47.0); HEMOGLOBIN 9.6 g/dL (12.0-16.0); LYMPHOCYTES PERCENT AUTO 13.5 % (20.5-50.1); MEAN CORPUSCULAR HEMOGLOBIN 31.8 pg (27.0-34.0); MEAN CORPUSCULAR HGB CONC 32.9 g/dL (33.0-35.0); MEAN CORPUSCULAR VOLUME 96.7 fL (80-100); MONOCYTES PERCENT AUTO 8.6 % (2-8); NEUTROPHILS PERCENT AUTO 77.1 % (42.2-75.2); PLATELET COUNT,PLT 137 10^3/uL (150-450); RED BLOOD CELL COUNT 3.02 10^6/uL (4.2-5.4); WHITE BLOOD CELL COUNT,WBC 5.1 10^3/uL (5.0-10.0)
[2023-04-15 09:59] LABS: A/G RATIO 0.75; ANION GAP 16.7 mEq/L (7-13); BILIRUBIN TOTAL 1.1 mg/dL (0.2-1.0); BUN/CREATININE RATIO 28.7 (No establ ref range); C-REACTIVE PROTEIN 8.53 ng/dL (<=0.50); CALCIUM 8.4 mg/dL (8.5-10.1); CREATININE 1.29 mg/dL (0.55-1.02); EST CRCL DRUG DOSING (CG) 23.18 mL/min; MAGNESIUM 1.9 mg/dL (1.8-2.4); POTASSIUM,K 4.7 mmol/L (3.5-5.1)
[2023-04-15] MEDS: Docusate Sodium 100 MG Cap PO PRN (14:38)
[2023-04-15] MEDS: Sodium Chloride 0.9% 1,000 ML IV SCH (14:42)
[2023-04-15] MEDS: cefTRIAXone 1 GM Vial IVPUSH SCH (20:40)
[2023-04-16] MEDS: Heparin Sodium 5,000 Units/ML Vial SUBCUT SCH (05:53)
[2023-04-16] MEDS: amLODIPine 5 MG Tab PO SCH (09:11)
[2023-04-16] MEDS: Glimepiride 2 MG Tab PO SCH ×2 (09:12→17:07)
[2023-04-16] MEDS: Sertraline 50 MG Tab PO SCH (09:12)
[2023-04-16] MEDS: Calcium Carbonate/Vitamin D3 1250 MG-5 MCG Tab PO SCH (09:12)
[2023-04-16] MEDS: Isosorbide Mononitrate 60 MG Tab.ER PO SCH ×2 (09:12→20:31)
[2023-04-16] MEDS: Multivitamin Tab PO SCH (09:12)
[2023-04-16] MEDS: Aspirin 81 MG Tab.EC PO SCH (09:12)
[2023-04-16] MEDS: Spironolactone 25 MG Tab PO SCH (09:12)
[2023-04-16] MEDS: Clopidogrel 75 MG Tab PO SCH (09:12)
[2023-04-16] MEDS: Carvedilol 6.25 MG Tab PO SCH ×2 (09:13→20:30)
[2023-04-16] MEDS: Ferrous Sulfate 325 MG Tab PO SCH (09:14)
[2023-04-16] MEDS: Acetaminophen 325 MG Tab PO PRN (10:27)
[2023-04-16] MEDS: Insulin Glarg,Human.Rec.Analog 100 Unit/ML 10 ML Vial SUBCUT SCH (10:28)
[2023-04-16] MEDS: Docusate Sodium 100 MG Cap PO PRN (20:30)
[2023-04-16] MEDS: Ziprasidone Mesylate 20 MG Vial IM PRN (20:30)
[2023-04-16] MEDS: cefTRIAXone 1 GM Vial IVPUSH SCH (20:30)
[2023-04-16] MEDS: Melatonin 3 MG Tab PO PRN (20:30)
[2023-04-16] MEDS: Sodium Chloride 0.9% 1,000 ML IV SCH (20:40)
[2023-04-17] MEDS: Clopidogrel 75 MG Tab PO SCH (09:15)
[2023-04-17] MEDS: Isosorbide Mononitrate 60 MG Tab.ER PO SCH ×2 (09:15→20:53)
[2023-04-17] MEDS: Ferrous Sulfate 325 MG Tab PO SCH (09:15)
[2023-04-17] MEDS: Calcium Carbonate/Vitamin D3 1250 MG-5 MCG Tab PO SCH (09:15)
[2023-04-17] MEDS: Aspirin 81 MG Tab.EC PO SCH (09:16)
[2023-04-17] MEDS: Spironolactone 25 MG Tab PO SCH (09:16)
[2023-04-17] MEDS: Sertraline 50 MG Tab PO SCH (09:16)
[2023-04-17] MEDS: Multivitamin Tab PO SCH (09:16)
[2023-04-17] MEDS: Carvedilol 6.25 MG Tab PO SCH ×2 (09:17→20:52)
[2023-04-17] MEDS: amLODIPine 5 MG Tab PO SCH (09:17)
[2023-04-17] MEDS: Glimepiride 2 MG Tab PO SCH ×2 (09:18→17:51)
[2023-04-17] MEDS: Insulin Glarg,Human.Rec.Analog 100 Unit/ML 10 ML Vial SUBCUT SCH (09:53)
[2023-04-17] MEDS: Sodium Chloride 0.9% 1,000 ML IV SCH (16:52)
[2023-04-17] MEDS: Melatonin 3 MG Tab PO PRN (20:53)
[2023-04-17] MEDS: cefTRIAXone 1 GM Vial IVPUSH SCH (20:58)
[2023-04-17] MEDS: Ziprasidone Mesylate 20 MG Vial IM PRN (21:01)
[2023-04-18 06:22] LABS: BASOPHILS PERCENT AUTO 0.1 % (0.0-1.0); HEMATOCRIT 29.5 % (37.0-47.0); HEMOGLOBIN 9.8 g/dL (12.0-16.0); LYMPHOCYTES PERCENT AUTO 13.2 % (20.5-50.1); MEAN CORPUSCULAR HEMOGLOBIN 31.6 pg (27.0-34.0); MEAN CORPUSCULAR HGB CONC 33.2 g/dL (33.0-35.0); MEAN CORPUSCULAR VOLUME 95.2 fL (80-100); MONOCYTES PERCENT AUTO 8.7 % (2-8); PLATELET COUNT,PLT 204 10^3/uL (150-450); WHITE BLOOD CELL COUNT,WBC 7.8 10^3/uL (5.0-10.0)
[2023-04-18 06:45] LABS: ALBUMIN 2.9 g/dL (3.4-5.0); ANION GAP 16.9 mEq/L (7-13); BILIRUBIN TOTAL 0.6 mg/dL (0.2-1.0); BUN/CREATININE RATIO 22.1 (No establ ref range); CALCIUM 8.3 mg/dL (8.5-10.1); CREATININE 1.04 mg/dL (0.55-1.02); EST CRCL DRUG DOSING (CG) 28.76 mL/min; MAGNESIUM 1.7 mg/dL (1.8-2.4); POTASSIUM,K 3.9 mmol/L (3.5-5.1); PROTEIN TOTAL,TP 6.8 g/dL (6.4-8.2)
[2023-04-18 06:47] LABS: A/G RATIO 0.74
[2023-04-18] MEDS: Multivitamin Tab PO SCH (08:21)
[2023-04-18] MEDS: Spironolactone 25 MG Tab PO SCH (08:21)
[2023-04-18] MEDS: Carvedilol 6.25 MG Tab PO SCH ×2 (08:21→20:33)
[2023-04-18] MEDS: Clopidogrel 75 MG Tab PO SCH (08:21)
[2023-04-18] MEDS: Ferrous Sulfate 325 MG Tab PO SCH (08:21)
[2023-04-18] MEDS: Glimepiride 2 MG Tab PO SCH ×2 (08:22→17:17)
[2023-04-18] MEDS: Aspirin 81 MG Tab.EC PO SCH (08:22)
[2023-04-18] MEDS: amLODIPine 5 MG Tab PO SCH (08:23)
[2023-04-18] MEDS: Isosorbide Mononitrate 60 MG Tab.ER PO SCH ×2 (08:23→20:33)
[2023-04-18] MEDS: Calcium Carbonate/Vitamin D3 1250 MG-5 MCG Tab PO SCH (08:23)
[2023-04-18] MEDS: Sertraline 50 MG Tab PO SCH (08:24)
[2023-04-18] MEDS: Insulin Glarg,Human.Rec.Analog 100 Unit/ML 10 ML Vial SUBCUT SCH (08:30)
[2023-04-18] MEDS: Melatonin 3 MG Tab PO PRN (20:33)
[2023-04-18] MEDS: cefTRIAXone 1 GM Vial IVPUSH SCH (20:37)
[2023-04-18] MEDS: Ziprasidone Mesylate 20 MG Vial IM PRN (20:40)
[2023-04-19] MEDS: Calcium Carbonate/Vitamin D3 1250 MG-5 MCG Tab PO SCH (08:27)
[2023-04-19] MEDS: Acetaminophen 325 MG Tab PO PRN (08:28)
[2023-04-19] MEDS: Glimepiride 2 MG Tab PO SCH (08:29)
[2023-04-19] MEDS: Sertraline 50 MG Tab PO SCH (08:29)
[2023-04-19] MEDS: Ferrous Sulfate 325 MG Tab PO SCH (08:29)
[2023-04-19] MEDS: Aspirin 81 MG Tab.EC PO SCH (08:29)
[2023-04-19] MEDS: Clopidogrel 75 MG Tab PO SCH (08:29)
[2023-04-19] MEDS: Spironolactone 25 MG Tab PO SCH (08:29)
[2023-04-19] MEDS: Isosorbide Mononitrate 60 MG Tab.ER PO SCH ×2 (08:30→21:04)
[2023-04-19] MEDS: amLODIPine 5 MG Tab PO SCH (08:30)
[2023-04-19] MEDS: Carvedilol 6.25 MG Tab PO SCH ×2 (08:30→21:04)
[2023-04-19] MEDS: Multivitamin Tab PO SCH (08:30)
[2023-04-19] MEDS ORDERED: Magnesium Sulfate/Water 2 GM in Premix Bag 1 BAG IV ONE (09:21)
[2023-04-19] MEDS: Insulin Glarg,Human.Rec.Analog 100 Unit/ML 10 ML Vial SUBCUT SCH (10:34)
[2023-04-19] MEDS ORDERED: Glimepiride 2 MG Tab PO SCH (18:00)
[2023-04-19] MEDS: Melatonin 3 MG Tab PO PRN (21:04)
[2023-04-19] MEDS: Sodium Chloride 0.9% 10 ML Syringe FLUSH PRN (21:05)
[2023-04-20] MEDS: Acetaminophen 325 MG Tab PO PRN (06:26)
[2023-04-20 06:51] LABS: ALBUMIN 2.5 g/dL (3.4-5.0); ANION GAP 15.6 mEq/L (7-13); BILIRUBIN TOTAL 0.6 mg/dL (0.2-1.0); BUN/CREATININE RATIO 18.2 (No establ ref range); CALCIUM 8.1 mg/dL (8.5-10.1); CREATININE 1.1 mg/dL (0.55-1.02); EST CRCL DRUG DOSING (CG) 27.19 mL/min; MAGNESIUM 1.9 mg/dL (1.8-2.4); POTASSIUM,K 3.6 mmol/L (3.5-5.1); PROTEIN TOTAL,TP 5.9 g/dL (6.4-8.2)
[2023-04-20 06:53] LABS: A/G RATIO 0.74
[2023-04-20] MEDS: Calcium Carbonate/Vitamin D3 1250 MG-5 MCG Tab PO SCH (08:55)
[2023-04-20] MEDS: Sertraline 50 MG Tab PO SCH (08:55)
[2023-04-20] MEDS: amLODIPine 5 MG Tab PO SCH (08:55)
[2023-04-20] MEDS: Multivitamin Tab PO SCH (08:55)
[2023-04-20] MEDS: Ferrous Sulfate 325 MG Tab PO SCH (08:55)
[2023-04-20] MEDS: Carvedilol 6.25 MG Tab PO SCH ×2 (08:56→21:28)
[2023-04-20] MEDS: Spironolactone 25 MG Tab PO SCH (08:56)
[2023-04-20] MEDS: Aspirin 81 MG Tab.EC PO SCH (08:56)
[2023-04-20] MEDS: Isosorbide Mononitrate 60 MG Tab.ER PO SCH ×2 (08:57→21:28)
[2023-04-20] MEDS: Clopidogrel 75 MG Tab PO SCH (08:57)
[2023-04-20] MEDS: Glimepiride 2 MG Tab PO SCH (09:06)
[2023-04-20] MEDS: Insulin Glarg,Human.Rec.Analog 100 Unit/ML 10 ML Vial SUBCUT SCH (09:08)
[2023-04-20] MEDS: Melatonin 3 MG Tab PO PRN (21:28)
[2023-04-21] MEDS: Isosorbide Mononitrate 60 MG Tab.ER PO SCH ×2 (10:30→20:50)
[2023-04-21] MEDS: amLODIPine 5 MG Tab PO SCH (10:30)
[2023-04-21] MEDS: Calcium Carbonate/Vitamin D3 1250 MG-5 MCG Tab PO SCH (10:44)
[2023-04-21] MEDS: Clopidogrel 75 MG Tab PO SCH (10:44)
[2023-04-21] MEDS: Carvedilol 6.25 MG Tab PO SCH ×2 (10:45→20:49)
[2023-04-21] MEDS: Glimepiride 2 MG Tab PO SCH (10:45)
[2023-04-21] MEDS: Multivitamin Tab PO SCH (10:45)
[2023-04-21] MEDS: Aspirin 81 MG Tab.EC PO SCH (10:46)
[2023-04-21] MEDS: Ferrous Sulfate 325 MG Tab PO SCH (10:47)
[2023-04-21] MEDS: Spironolactone 25 MG Tab PO SCH (10:47)
[2023-04-21] MEDS: Sertraline 50 MG Tab PO SCH (10:47)
[2023-04-21] MEDS: Insulin Glarg,Human.Rec.Analog 100 Unit/ML 10 ML Vial SUBCUT SCH (10:49)
[2023-04-21] MEDS: Sodium Chloride 0.9% 10 ML Syringe FLUSH PRN (20:48)
[2023-04-21] MEDS: Melatonin 3 MG Tab PO PRN (20:50)
[2023-04-21] MEDS ORDERED: Loperamide 2 MG Cap PO PRN (21:25)
[2023-04-22] MEDS: Glimepiride 2 MG Tab PO SCH (08:41)
[2023-04-22] MEDS: Multivitamin Tab PO SCH (08:41)
[2023-04-22] MEDS: Aspirin 81 MG Tab.EC PO SCH (08:41)
[2023-04-22] MEDS: Calcium Carbonate/Vitamin D3 1250 MG-5 MCG Tab PO SCH (08:41)
[2023-04-22] MEDS: Clopidogrel 75 MG Tab PO SCH (08:41)
[2023-04-22] MEDS: Sertraline 50 MG Tab PO SCH (08:41)
[2023-04-22] MEDS: Ferrous Sulfate 325 MG Tab PO SCH (08:41)
[2023-04-22] MEDS: Isosorbide Mononitrate 60 MG Tab.ER PO SCH ×2 (08:41→20:47)
[2023-04-22] MEDS: amLODIPine 5 MG Tab PO SCH (08:42)
[2023-04-22] MEDS: Spironolactone 25 MG Tab PO SCH (08:42)
[2023-04-22] MEDS: Carvedilol 6.25 MG Tab PO SCH ×2 (08:42→20:47)
[2023-04-22] MEDS: Insulin Glarg,Human.Rec.Analog 100 Unit/ML 10 ML Vial SUBCUT SCH (09:31)
[2023-04-22] MEDS: Melatonin 3 MG Tab PO PRN (20:48)
[2023-04-23 06:51] LABS: BASOPHILS PERCENT AUTO 0.1 % (0.0-1.0); HEMATOCRIT 29.4 % (37.0-47.0); HEMOGLOBIN 9.7 g/dL (12.0-16.0); LYMPHOCYTES PERCENT AUTO 14.1 % (20.5-50.1); MEAN CORPUSCULAR HEMOGLOBIN 31.2 pg (27.0-34.0); MEAN CORPUSCULAR VOLUME 94.5 fL (80-100); MONOCYTES PERCENT AUTO 11.2 % (2-8); NEUTROPHILS PERCENT AUTO 72.6 % (42.2-75.2); PLATELET COUNT,PLT 204 10^3/uL (150-450); RED BLOOD CELL COUNT 3.11 10^6/uL (4.2-5.4); WHITE BLOOD CELL COUNT,WBC 9.4 10^3/uL (5.0-10.0)
[2023-04-23 07:00] LABS: A/G RATIO 0.74; ALBUMIN 2.5 g/dL (3.4-5.0); ANION GAP 16.9 mEq/L (7-13); BILIRUBIN TOTAL 0.6 mg/dL (0.2-1.0); BUN/CREATININE RATIO 22.5 (No establ ref range); CALCIUM 8.1 mg/dL (8.5-10.1); CREATININE 1.29 mg/dL (0.55-1.02); EST CRCL DRUG DOSING (CG) 23.18 mL/min; MAGNESIUM 1.8 mg/dL (1.8-2.4); POTASSIUM,K 3.9 mmol/L (3.5-5.1); PROTEIN TOTAL,TP 5.9 g/dL (6.4-8.2)
[2023-04-23] MEDS: Multivitamin Tab PO SCH (08:21)
[2023-04-23] MEDS: amLODIPine 5 MG Tab PO SCH (08:21)
[2023-04-23] MEDS: Calcium Carbonate/Vitamin D3 1250 MG-5 MCG Tab PO SCH (08:21)
[2023-04-23] MEDS: Ferrous Sulfate 325 MG Tab PO SCH (08:22)
[2023-04-23] MEDS: Clopidogrel 75 MG Tab PO SCH (08:22)
[2023-04-23] MEDS: Carvedilol 6.25 MG Tab PO SCH ×2 (08:22→21:06)
[2023-04-23] MEDS: Isosorbide Mononitrate 60 MG Tab.ER PO SCH ×2 (08:22→21:06)
[2023-04-23] MEDS: Sertraline 50 MG Tab PO SCH (08:22)
[2023-04-23] MEDS: Aspirin 81 MG Tab.EC PO SCH (08:22)
[2023-04-23] MEDS: Spironolactone 25 MG Tab PO SCH (08:23)
[2023-04-23] MEDS: Melatonin 3 MG Tab PO PRN (21:06)
[2023-04-24] MEDS: Acetaminophen 325 MG Tab PO PRN ×2 (04:03→20:25)
[2023-04-24] MEDS: Spironolactone 25 MG Tab PO SCH (09:46)
[2023-04-24] MEDS: Aspirin 81 MG Tab.EC PO SCH (09:46)
[2023-04-24] MEDS: Isosorbide Mononitrate 60 MG Tab.ER PO SCH ×2 (09:47→20:24)
[2023-04-24] MEDS: Multivitamin Tab PO SCH (09:47)
[2023-04-24] MEDS: Carvedilol 6.25 MG Tab PO SCH ×2 (09:47→20:24)
[2023-04-24] MEDS: Ferrous Sulfate 325 MG Tab PO SCH (09:47)
[2023-04-24] MEDS: Clopidogrel 75 MG Tab PO SCH (09:47)
[2023-04-24] MEDS: Calcium Carbonate/Vitamin D3 1250 MG-5 MCG Tab PO SCH (09:47)
[2023-04-24] MEDS: amLODIPine 5 MG Tab PO SCH (09:47)
[2023-04-24] MEDS: Sertraline 50 MG Tab PO SCH (09:47)
[2023-04-24] MEDS: Melatonin 3 MG Tab PO PRN (20:26)
[2023-04-24] MEDS: Sodium Chloride 0.9% 10 ML Syringe FLUSH PRN (20:27)
[2023-04-25] MEDS: Acetaminophen 325 MG Tab PO PRN ×2 (04:23→20:07)
[2023-04-25] MEDS: Multivitamin Tab PO SCH (10:01)
[2023-04-25] MEDS: Calcium Carbonate/Vitamin D3 1250 MG-5 MCG Tab PO SCH (10:01)
[2023-04-25] MEDS: Carvedilol 6.25 MG Tab PO SCH ×2 (10:01→20:07)
[2023-04-25] MEDS: Sertraline 50 MG Tab PO SCH (10:02)
[2023-04-25] MEDS: Clopidogrel 75 MG Tab PO SCH (10:02)
[2023-04-25] MEDS: Spironolactone 25 MG Tab PO SCH (10:02)
[2023-04-25] MEDS: Aspirin 81 MG Tab.EC PO SCH (10:02)
[2023-04-25] MEDS: Isosorbide Mononitrate 60 MG Tab.ER PO SCH ×2 (10:02→20:07)
[2023-04-25] MEDS: Ferrous Sulfate 325 MG Tab PO SCH (10:02)
[2023-04-25] MEDS: amLODIPine 5 MG Tab PO SCH (10:02)
[2023-04-25] MEDS: Vancomycin 125 MG Cap PO SCH ×3 (13:04→20:06)
[2023-04-25] MEDS: Saccharomyces Boulardii (Probiotic) 250 MG Cap PO SCH (20:06)
[2023-04-25] MEDS: Melatonin 3 MG Tab PO PRN (20:07)
[2023-04-25] MEDS: Sodium Chloride 0.9% 10 ML Syringe FLUSH PRN (20:17)
[2023-04-26] MEDS: amLODIPine 5 MG Tab PO SCH (08:04)
[2023-04-26] MEDS: Saccharomyces Boulardii (Probiotic) 250 MG Cap PO SCH ×2 (08:04→20:03)
[2023-04-26] MEDS: Multivitamin Tab PO SCH (08:05)
[2023-04-26] MEDS: Calcium Carbonate/Vitamin D3 1250 MG-5 MCG Tab PO SCH (08:05)
[2023-04-26] MEDS: Aspirin 81 MG Tab.EC PO SCH (08:05)
[2023-04-26] MEDS: Spironolactone 25 MG Tab PO SCH (08:05)
[2023-04-26] MEDS: Isosorbide Mononitrate 60 MG Tab.ER PO SCH ×2 (08:05→20:03)
[2023-04-26] MEDS: Sertraline 50 MG Tab PO SCH (08:05)
[2023-04-26] MEDS: Carvedilol 6.25 MG Tab PO SCH ×2 (08:05→20:03)
[2023-04-26] MEDS: Clopidogrel 75 MG Tab PO SCH (08:05)
[2023-04-26] MEDS: Vancomycin 125 MG Cap PO SCH ×4 (08:05→20:05)
[2023-04-26] MEDS: Ferrous Sulfate 325 MG Tab PO SCH (08:06)
[2023-04-26] MEDS: Melatonin 3 MG Tab PO PRN (20:03)
[2023-04-26] MEDS: Acetaminophen 325 MG Tab PO PRN (20:04)
[2023-04-26] MEDS ORDERED: Glucose Gel 15 GM in 37.5 GM Tube PO SCH (21:00)
[2023-04-27 06:42] LABS: BASOPHILS PERCENT AUTO 0.1 % (0.0-1.0); EOSINOPHILS PERCENT AUTO 1.4 % (1.0-3.0); HEMATOCRIT 28.1 % (37.0-47.0); HEMOGLOBIN 9.3 g/dL (12.0-16.0); LYMPHOCYTES PERCENT AUTO 12.8 % (20.5-50.1); MEAN CORPUSCULAR HEMOGLOBIN 31.1 pg (27.0-34.0); MEAN CORPUSCULAR HGB CONC 33.1 g/dL (33.0-35.0); MONOCYTES PERCENT AUTO 7.9 % (2-8); NEUTROPHILS PERCENT AUTO 77.8 % (42.2-75.2); PLATELET COUNT,PLT 249 10^3/uL (150-450); RED BLOOD CELL COUNT 2.99 10^6/uL (4.2-5.4)
[2023-04-27 06:57] LABS: ALBUMIN 2.3 g/dL (3.4-5.0); ANION GAP 14.7 mEq/L (7-13); BILIRUBIN TOTAL 0.5 mg/dL (0.2-1.0); BUN/CREATININE RATIO 28.2 (No establ ref range); CALCIUM 8.2 mg/dL (8.5-10.1); CREATININE 1.49 mg/dL (0.55-1.02); EST CRCL DRUG DOSING (CG) 20.07 mL/min; MAGNESIUM 1.9 mg/dL (1.8-2.4); POTASSIUM,K 3.7 mmol/L (3.5-5.1); PROTEIN TOTAL,TP 5.6 g/dL (6.4-8.2)
[2023-04-27 06:59] LABS: A/G RATIO 0.7
[2023-04-27] MEDS: Acetaminophen 325 MG Tab PO PRN ×2 (07:41→20:31)
[2023-04-27] MEDS: Calcium Carbonate/Vitamin D3 1250 MG-5 MCG Tab PO SCH (10:07)
[2023-04-27] MEDS: Carvedilol 6.25 MG Tab PO SCH ×2 (10:07→20:27)
[2023-04-27] MEDS: Spironolactone 25 MG Tab PO SCH (10:07)
[2023-04-27] MEDS: Aspirin 81 MG Tab.EC PO SCH (10:09)
[2023-04-27] MEDS: Isosorbide Mononitrate 60 MG Tab.ER PO SCH ×2 (10:09→20:27)
[2023-04-27] MEDS: Ferrous Sulfate 325 MG Tab PO SCH (10:09)
[2023-04-27] MEDS: Saccharomyces Boulardii (Probiotic) 250 MG Cap PO SCH (10:09)
[2023-04-27] MEDS: amLODIPine 5 MG Tab PO SCH (10:10)
[2023-04-27] MEDS: Sertraline 50 MG Tab PO SCH (10:11)
[2023-04-27] MEDS: Clopidogrel 75 MG Tab PO SCH (10:11)
[2023-04-27] MEDS: Vancomycin 125 MG Cap PO SCH ×4 (10:11→20:27)
[2023-04-27] MEDS: Multivitamin Tab PO SCH (10:11)
[2023-04-27] MEDS ORDERED: MVI, Adult with Vitamin K 10 ML, Folic Acid 1 MG, Thiamine 100 MG in Lactated Ringers 1... IV ONE ×4 (11:46)
[2023-04-27] MEDS: Glucose Gel 15 GM in 37.5 GM Tube PO SCH (20:28)
[2023-04-27] MEDS: Melatonin 3 MG Tab PO PRN (20:31)
[2023-04-28] MEDS: amLODIPine 5 MG Tab PO SCH (09:08)
[2023-04-28] MEDS: Sertraline 50 MG Tab PO SCH (09:08)
[2023-04-28] MEDS: Aspirin 81 MG Tab.EC PO SCH (09:08)
[2023-04-28] MEDS: Multivitamin Tab PO SCH (09:08)
[2023-04-28] MEDS: Isosorbide Mononitrate 60 MG Tab.ER PO SCH ×2 (09:08→20:24)
[2023-04-28] MEDS: Clopidogrel 75 MG Tab PO SCH (09:08)
[2023-04-28] MEDS: Ferrous Sulfate 325 MG Tab PO SCH (09:08)
[2023-04-28] MEDS: Calcium Carbonate/Vitamin D3 1250 MG-5 MCG Tab PO SCH (09:08)
[2023-04-28] MEDS: Vancomycin 125 MG Cap PO SCH ×4 (09:08→20:23)
[2023-04-28] MEDS: Carvedilol 6.25 MG Tab PO SCH ×2 (09:09→20:24)
[2023-04-28] MEDS: Acetaminophen 325 MG Tab PO PRN (20:23)
[2023-04-28] MEDS: Melatonin 3 MG Tab PO PRN (20:24)
[2023-04-28] MEDS: Glucose Gel 15 GM in 37.5 GM Tube PO SCH (20:24)
[2023-04-28] MEDS: Sodium Chloride 0.9% 10 ML Syringe FLUSH PRN (20:25)
[2023-04-29 07:14] LABS: ALBUMIN 2.5 g/dL (3.4-5.0); ANION GAP 15.9 mEq/L (7-13); BILIRUBIN TOTAL 0.7 mg/dL (0.2-1.0); BUN/CREATININE RATIO 24.5 (No establ ref range); CALCIUM 8.2 mg/dL (8.5-10.1); CREATININE 0.98 mg/dL (0.55-1.02); EST CRCL DRUG DOSING (CG) 30.52 mL/min; MAGNESIUM 1.5 mg/dL (1.8-2.4); POTASSIUM,K 3.9 mmol/L (3.5-5.1); PROTEIN TOTAL,TP 6.2 g/dL (6.4-8.2)
[2023-04-29 07:21] LABS: A/G RATIO 0.68
[2023-04-29] MEDS: Magnesium Sulfate/Water 2 GM in Premix Bag 1 BAG IV ONE ×2 (08:51→13:14)
[2023-04-29] MEDS: amLODIPine 5 MG Tab PO SCH (08:52)
[2023-04-29] MEDS: Isosorbide Mononitrate 60 MG Tab.ER PO SCH ×2 (08:52→20:13)
[2023-04-29] MEDS: Carvedilol 6.25 MG Tab PO SCH ×2 (08:52→20:13)
[2023-04-29] MEDS: Aspirin 81 MG Tab.EC PO SCH (08:52)
[2023-04-29] MEDS: Ferrous Sulfate 325 MG Tab PO SCH (08:53)
[2023-04-29] MEDS: Multivitamin Tab PO SCH (08:53)
[2023-04-29] MEDS: Calcium Carbonate/Vitamin D3 1250 MG-5 MCG Tab PO SCH (08:53)
[2023-04-29] MEDS: Vancomycin 125 MG Cap PO SCH ×4 (08:53→20:13)
[2023-04-29] MEDS: Clopidogrel 75 MG Tab PO SCH (08:53)
[2023-04-29] MEDS: Sertraline 50 MG Tab PO SCH (08:53)
[2023-04-29] MEDS: Magnesium Oxide 400 MG Tab PO SCH (18:14)
[2023-04-29] MEDS: Acetaminophen 325 MG Tab PO PRN (20:12)
[2023-04-29] MEDS: Melatonin 3 MG Tab PO PRN (20:12)
[2023-04-29] MEDS: Glucose Gel 15 GM in 37.5 GM Tube PO SCH (20:13)
[2023-04-29] MEDS ORDERED: Mirtazapine 15 MG Tab PO SCH (21:00)
[2023-04-30] MEDS: Clopidogrel 75 MG Tab PO SCH (08:18)
[2023-04-30] MEDS: Vancomycin 125 MG Cap PO SCH (08:18)
[2023-04-30] MEDS: Calcium Carbonate/Vitamin D3 1250 MG-5 MCG Tab PO SCH (08:18)
[2023-04-30] MEDS: Ferrous Sulfate 325 MG Tab PO SCH (08:18)
[2023-04-30] MEDS: Magnesium Oxide 400 MG Tab PO SCH (08:18)
[2023-04-30] MEDS: Isosorbide Mononitrate 60 MG Tab.ER PO SCH (08:18)
[2023-04-30] MEDS: Multivitamin Tab PO SCH (08:18)
[2023-04-30] MEDS: Aspirin 81 MG Tab.EC PO SCH (08:18)
[2023-04-30] MEDS: Sertraline 50 MG Tab PO SCH (08:18)
[2023-04-30 08:19] VITALS: BP 154/57; PULSE 67
[2023-04-30] MEDS: amLODIPine 5 MG Tab PO SCH (08:19)
[2023-04-30] MEDS: Carvedilol 6.25 MG Tab PO SCH (08:19)
[2023-04-30 12:46] LABS: C PEPTIDE,SERUM 3.1 ng/mL (0.5-3.3); INSULIN 7 uIU/mL (3-25)
[2023-05-02 13:47] LABS: INSULIN ANTIBODY <0.4 U/mL (0.0-0.4)
== END 2023-04-30 08:50 | disposition other institution (70) | DRG 92 ==
LOC: DL.ED 23:41 → DL.MS 23:51
PROVIDERS: ADMIT Internal Medicine; ATTEND Internal Medicine
DX: G92.8 Other toxic encephalopathy (principal); A04.72 Enterocolitis due to Clostridium difficile, not specified as recurrent; N17.9 Acute kidney failure, unspecified; N39.0 Urinary tract infection, site not specified; I13.0 Hypertensive heart and chronic kidney disease with heart failure and stage 1 through stage 4 chronic kidney disease, or unspecified chronic kidney disease; E78.5 Hyperlipidemia, unspecified; H40.9 Unspecified glaucoma; F41.9 Anxiety disorder, unspecified; Z66 Do not resuscitate; F32.A Depression, unspecified; M19.90 Unspecified osteoarthritis, unspecified site; E11.65 Type 2 diabetes mellitus with hyperglycemia; E83.42 Hypomagnesemia; E88.09 Other disorders of plasma-protein metabolism, not elsewhere classified; T50.995A Adverse effect of other drugs, medicaments and biological substances, initial encounter; D69.6 Thrombocytopenia, unspecified; E11.42 Type 2 diabetes mellitus with diabetic polyneuropathy; E11.649 Type 2 diabetes mellitus with hypoglycemia without coma; I25.10 Atherosclerotic heart disease of native coronary artery without angina pectoris; F03.90 Unspecified dementia, unspecified severity, without behavioral disturbance, psychotic disturbance, mood disturbance, and anxiety; D50.9 Iron deficiency anemia, unspecified; M10.9 Gout, unspecified; E11.22 Type 2 diabetes mellitus with diabetic chronic kidney disease; Z98.890 Other specified postprocedural states; Z79.82 Long term (current) use of aspirin; I50.9 Heart failure, unspecified; N18.30 Chronic kidney disease, stage 3 unspecified; I25.2 Old myocardial infarction; Z11.52 Encounter for screening for COVID-19; E10.9 Type 1 diabetes mellitus without complications; Z88.7 Allergy status to serum and vaccine; Z88.8 Allergy status to other drugs, medicaments and biological substances; Z79.899 Other long term (current) drug therapy
CPT/HCPCS: 0241U; 36415; 80053; 81001; 82533; 82947; 83605; 83735; 85025; 86140; 87045; 87046; 87086; 87324; 87328; 87329; 87493; 87899; 97110-GO; 97110-GP; 97116-GP; 97161-GP; 97165-GO; 97530-GO; 97530-GP; 97535-GO; 99222; 99232; 99238; 99284; 99285; A9270-GY; C1758; J0696; J1644; J1815-GY; J3411; J3475; J3486; J3490; J7030; J7120; U0002

== ENCOUNTER 2023-05-08 07:57 | Emergency (ER) | payer MEDICARE ==
[2023-05-08 07:43] VITALS: BP 158/73; PULSE 86
[2023-05-08 08:35] LABS: HEMATOCRIT 37.2 % (37.0-47.0); MEAN CORPUSCULAR HEMOGLOBIN 30.9 pg (27.0-34.0); MEAN CORPUSCULAR HGB CONC 32.3 g/dL (33.0-35.0); MEAN CORPUSCULAR VOLUME 95.9 fL (80-100); PLATELET COUNT,PLT 232 10^3/uL (150-450); RED BLOOD CELL COUNT 3.88 10^6/uL (4.2-5.4); WHITE BLOOD CELL COUNT,WBC 10.7 10^3/uL (5.0-10.0)
[2023-05-08 08:55] LABS: A/G RATIO 0.9; ALBUMIN 3.5 g/dL (3.4-5.0); ANION GAP 23.5 mEq/L (7-13); BUN/CREATININE RATIO 19.8 (No establ ref range); CALCIUM 9.2 mg/dL (8.5-10.1); CREATININE 2.62 mg/dL (0.55-1.02); EST CRCL DRUG DOSING (CG) 12.37 mL/min; POTASSIUM,K 4.5 mmol/L (3.5-5.1); PROTEIN TOTAL,TP 7.6 g/dL (6.4-8.2)
[2023-05-08 08:59] LABS: APPEARANCE,URINE SLIGHTLY CLOUDY (CLEAR); COLOR,URINE YELLOW (YELLOW)
[2023-05-08 09:00] LABS: PH,URINE 5.5 (5.0-9.0)
[2023-05-08 09:01] LABS: BILIRUBIN,URINE MODERATE (NEGATIVE); GLUCOSE,URINE NEGATIVE (NEGATIVE); KETONES,URINE 15 (NEGATIVE); LEUKOCYTE ESTERASE,URINE SMALL (NEGATIVE); PROTEIN,URINE 30 (NEGATIVE)
[2023-05-08 09:02] LABS: NITRITE,URINE NEGATIVE (NEGATIVE); OCCULT BLOOD,URINE TRACE-INTACT (NEGATIVE); UROBILINOGEN,URINE 0.2 mg/dL (0.2-1.0)
[2023-05-08 09:25] LABS: LYMPHOCYTES PERCENT MAN 12 % (20-50); MONOCYTES PERCENT MAN 14 % (2-8); SEG NEUTROPHILS PERCENT MAN 73 % (42-75)
[2023-05-08 09:26] LABS: EOSINOPHILS PERCENT MAN 1 % (1-3)
[2023-05-08 09:39] LABS: AMORPHOUS SEDIMENT,URINE OCCASIONAL /HPF (NOT SEEN); BACTERIA,URINE FEW /HPF (0-FEW/HPF); EPITHELIAL CELLS,URINE MODERATE /HPF (NOT SEEN)
[2023-05-08 09:40] LABS: YEAST,URINE MODERATE /HPF (NOT SEEN)
== END 2023-05-08 10:30 ==
LOC: DL.ED 07:57
DX: I13.0 Hypertensive heart and chronic kidney disease with heart failure and stage 1 through stage 4 chronic kidney disease, or unspecified chronic kidney disease (principal); I50.9 Heart failure, unspecified; N18.5 Chronic kidney disease, stage 5; I25.2 Old myocardial infarction; E11.9 Type 2 diabetes mellitus without complications; W19.XXXA Unspecified fall, initial encounter; Z79.82 Long term (current) use of aspirin; Z79.899 Other long term (current) drug therapy; Z88.8 Allergy status to other drugs, medicaments and biological substances; Z91.041 Radiographic dye allergy status
CPT/HCPCS: 36415; 71045; 72040; 80053; 81001; 85007; 85027; 87086; 99283; 99284

== ENCOUNTER 2023-06-10 10:51 | Inpatient (IN) | payer MEDICARE, OTHER ==
[2023-06-10] MEDS ORDERED: Acetaminophen 325 MG Tab PO PRN (14:42)
[2023-06-10] MEDS ORDERED: Sodium Chloride 0.9% 10 ML Syringe FLUSH PRN (14:42)
[2023-06-10] MEDS ORDERED: Albuterol/Ipratropium 3.0-0.5 MG/3 ML Neb Soln NEB PRN (14:42)
[2023-06-10] MEDS ORDERED: Naloxone 2 MG/2 ML Syringe IVPUSH PRN (14:42)
[2023-06-10] MEDS ORDERED: Ondansetron 4 MG/2 ML SDV IVPUSH PRN (14:42)
[2023-06-10] MEDS ORDERED: Metoprolol Tartrate 5 MG/5 ML SDV IVPUSH PRN (14:42)
[2023-06-10] MEDS ORDERED: hydrALAZINE 20 MG/ML SDV IVPUSH PRN (14:42)
[2023-06-10] MEDS ORDERED: traMADol 50 MG Tab PO PRN (14:46)
[2023-06-10] MEDS: Lactated Ringers 1,000 ML IV ONE (15:24)
[2023-06-10] MEDS: MVI, Adult with Vitamin K 10 ML, Folic Acid 1 MG, Thiamine 100 MG in Lactated Ringers 1... IV ONE (17:50)
[2023-06-10 20:51] LABS: ALBUMIN 2.1 g/dL (3.4-5.0); ANION GAP 17.9 mEq/L (7-13); BILIRUBIN TOTAL 0.6 mg/dL (0.2-1.0); BUN/CREATININE RATIO 20.3 (No establ ref range); CALCIUM 7.8 mg/dL (8.5-10.1); EST CRCL DRUG DOSING (CG) 9.04 mL/min; MAGNESIUM 1.7 mg/dL (1.8-2.4); POTASSIUM,K 2.9 mmol/L (3.5-5.1); PROTEIN TOTAL,TP 5.3 g/dL (6.4-8.2)
[2023-06-10 21:13] LABS: A/G RATIO 0.66
[2023-06-10] MEDS: Mirtazapine 15 MG Tab PO SCH (21:27)
[2023-06-10] MEDS: Saccharomyces Boulardii (Probiotic) 250 MG Cap PO SCH (21:27)
[2023-06-10] MEDS: Sodium Chloride 0.9% 10 ML Syringe FLUSH SCH (21:30)
[2023-06-10] MEDS: Ziprasidone Mesylate 20 MG Vial IM PRN (22:30)
[2023-06-10] MEDS: HYDROmorphone 0.5 MG/0.5 ML Syringe IVPUSH PRN (23:30)
[2023-06-11] MEDS ORDERED: Loperamide 2 MG Cap PO PRN (03:54)
[2023-06-11 06:15] LABS: EOSINOPHILS PERCENT AUTO 1.1 % (1.0-3.0); HEMOGLOBIN 10.3 g/dL (12.0-16.0); LYMPHOCYTES PERCENT AUTO 14.2 % (20.5-50.1); MEAN CORPUSCULAR HEMOGLOBIN 30.8 pg (27.0-34.0); MEAN CORPUSCULAR HGB CONC 33.2 g/dL (33.0-35.0); MEAN CORPUSCULAR VOLUME 92.8 fL (80-100); MONOCYTES PERCENT AUTO 7.9 % (2-8); NEUTROPHILS PERCENT AUTO 76.8 % (42.2-75.2); PLATELET COUNT,PLT 165 10^3/uL (150-450); RED BLOOD CELL COUNT 3.34 10^6/uL (4.2-5.4); WHITE BLOOD CELL COUNT,WBC 9.4 10^3/uL (5.0-10.0)
[2023-06-11 06:44] LABS: ALBUMIN 2.1 g/dL (3.4-5.0); ANION GAP 16.8 mEq/L (7-13); BILIRUBIN TOTAL 0.6 mg/dL (0.2-1.0); BUN/CREATININE RATIO 21.7 (No establ ref range); CALCIUM 7.9 mg/dL (8.5-10.1); CREATININE 2.77 mg/dL (0.55-1.02); EST CRCL DRUG DOSING (CG) 9.79 mL/min; MAGNESIUM 1.8 mg/dL (1.8-2.4); POTASSIUM,K 2.8 mmol/L (3.5-5.1); PROTEIN TOTAL,TP 5.4 g/dL (6.4-8.2)
[2023-06-11 06:52] LABS: A/G RATIO 0.64
[2023-06-11] MEDS: Aspirin 81 MG Tab.EC PO SCH (08:14)
[2023-06-11] MEDS: Isosorbide Mononitrate 60 MG Tab.ER PO SCH (08:14)
[2023-06-11] MEDS: Clopidogrel 75 MG Tab PO SCH (08:14)
[2023-06-11] MEDS: Ferrous Sulfate 325 MG Tab PO SCH (08:15)
[2023-06-11] MEDS: Sertraline 50 MG Tab PO SCH (08:16)
[2023-06-11] MEDS: Carvedilol 6.25 MG Tab PO SCH (08:17)
[2023-06-11] MEDS: amLODIPine 5 MG Tab PO SCH (10:50)
[2023-06-11] MEDS: Dextrose 5%-0.9% NaCl 1,000 ML IV SCH (20:41)
[2023-06-11] MEDS: Mirtazapine 15 MG Tab PO SCH (20:42)
[2023-06-12 06:33] LABS: BASOPHILS PERCENT AUTO 0.1 % (0.0-1.0); EOSINOPHILS PERCENT AUTO 1.5 % (1.0-3.0); HEMATOCRIT 32.6 % (37.0-47.0); HEMOGLOBIN 10.8 g/dL (12.0-16.0); LYMPHOCYTES PERCENT AUTO 13.6 % (20.5-50.1); MEAN CORPUSCULAR HEMOGLOBIN 30.7 pg (27.0-34.0); MEAN CORPUSCULAR HGB CONC 33.1 g/dL (33.0-35.0); MEAN CORPUSCULAR VOLUME 92.6 fL (80-100); MONOCYTES PERCENT AUTO 10.5 % (2-8); NEUTROPHILS PERCENT AUTO 74.3 % (42.2-75.2); PLATELET COUNT,PLT 158 10^3/uL (150-450); RED BLOOD CELL COUNT 3.52 10^6/uL (4.2-5.4); WHITE BLOOD CELL COUNT,WBC 8.2 10^3/uL (5.0-10.0)
[2023-06-12 06:52] LABS: ALKALINE PHOSPHATASE 65 U/L (46-116); ANION GAP 15.6 mEq/L (7-13); ASPARTATE AMNIOTRANSFERASE,AST 7 U/L (15-37); BILIRUBIN TOTAL 0.7 mg/dL (0.2-1.0); BLOOD UREA NITROGEN,BUN 52 mg/dL (7-18); BUN/CREATININE RATIO 22.3 (No establ ref range); CALCIUM 7.7 mg/dL (8.5-10.1); CARBON DIOXIDE,CO2 23 mmol/L (21-32); CHLORIDE,CL 111 mmol/L (98-107); CREATININE 2.33 mg/dL (0.55-1.02); EST CRCL DRUG DOSING (CG) 11.64 mL/min; GLUCOSE RANDOM 148 mg/dL (70-99); MAGNESIUM 1.7 mg/dL (1.8-2.4); POTASSIUM,K 2.6 mmol/L (3.5-5.1); PROTEIN TOTAL,TP 5.4 g/dL (6.4-8.2); SODIUM,NA 147 mmol/L (136-145)
[2023-06-12 07:14] LABS: A/G RATIO 0.59; ALANINE AMINOTRANSFERASE,ALT < 6 U/L (14-59); ESTIMATED GFR 20 mL/min (>=60)
[2023-06-12] MEDS: Ziprasidone Mesylate 20 MG Vial IM PRN (15:12)
[2023-06-12] MEDS ORDERED: Ziprasidone Mesylate 20 MG Vial IM PRN (20:25)
[2023-06-13] MEDS: HYDROmorphone 0.5 MG/0.5 ML Syringe IVPUSH PRN ×2 (05:55→16:47)
[2023-06-13] MEDS ORDERED: Morphine 2 MG/ML SYRINGE IVPUSH PRN (12:18)
[2023-06-13] MEDS: Scopalamine 1mg/3day Transdermal Patch TOP ONE (12:59)
[2023-06-13 13:40] VITALS: BP 140/50; PULSE 83
[2023-06-13] MEDS: LORazepam 2 MG/ML SDV IVPUSH PRN (14:40)
[2023-06-13] MEDS: Atropine 1% Ophth Soln 5 ML Bottle SL PRN (20:45)
== END 2023-06-14 11:58 | disposition expired | DRG 640 ==
LOC: DL.MS 10:51 → OBSVTOIN 06-12 10:51 → DL.MS 06-13 14:41
PROVIDERS: ADMIT Internal Medicine; ATTEND Internal Medicine
DX: E43 Unspecified severe protein-calorie malnutrition (principal); G92.8 Other toxic encephalopathy; N17.9 Acute kidney failure, unspecified; F03.93 Unspecified dementia, unspecified severity, with mood disturbance; F03.94 Unspecified dementia, unspecified severity, with anxiety; Z68.1 Body mass index [BMI] 19.9 or less, adult; E87.20 Acidosis, unspecified; I13.0 Hypertensive heart and chronic kidney disease with heart failure and stage 1 through stage 4 chronic kidney disease, or unspecified chronic kidney disease; A04.71 Enterocolitis due to Clostridium difficile, recurrent; E11.65 Type 2 diabetes mellitus with hyperglycemia; R53.1 Weakness; Z66 Do not resuscitate; Z51.5 Encounter for palliative care; N18.30 Chronic kidney disease, stage 3 unspecified; E88.09 Other disorders of plasma-protein metabolism, not elsewhere classified; D50.9 Iron deficiency anemia, unspecified; R19.5 Other fecal abnormalities; E11.22 Type 2 diabetes mellitus with diabetic chronic kidney disease; E11.42 Type 2 diabetes mellitus with diabetic polyneuropathy; D72.829 Elevated white blood cell count, unspecified; E87.6 Hypokalemia; R63.5 Abnormal weight gain; E87.8 Other disorders of electrolyte and fluid balance, not elsewhere classified; E83.42 Hypomagnesemia; R26.9 Unspecified abnormalities of gait and mobility; R63.4 Abnormal weight loss; M10.9 Gout, unspecified; R26.89 Other abnormalities of gait and mobility; R29.6 Repeated falls; R62.7 Adult failure to thrive; R79.89 Other specified abnormal findings of blood chemistry; E11.9 Type 2 diabetes mellitus without complications; E78.5 Hyperlipidemia, unspecified; I50.9 Heart failure, unspecified; D63.1 Anemia in chronic kidney disease; N31.9 Neuromuscular dysfunction of bladder, unspecified; L89.152 Pressure ulcer of sacral region, stage 2; N18.9 Chronic kidney disease, unspecified; E11.39 Type 2 diabetes mellitus with other diabetic ophthalmic complication; H42 Glaucoma in diseases classified elsewhere; I25.2 Old myocardial infarction; E11.40 Type 2 diabetes mellitus with diabetic neuropathy, unspecified; Z98.890 Other specified postprocedural states; Z87.440 Personal history of urinary (tract) infections; Z85.118 Personal history of other malignant neoplasm of bronchus and lung; Z95.5 Presence of coronary angioplasty implant and graft; Z88.8 Allergy status to other drugs, medicaments and biological substances; Z88.7 Allergy status to serum and vaccine; Z79.82 Long term (current) use of aspirin; Z86.73 Personal history of transient ischemic attack (TIA), and cerebral infarction without residual deficits; Z79.899 Other long term (current) drug therapy
CPT/HCPCS: 36415; 80053; 82947; 83735; 85025; 87324; 87493; 96361; 96365; 96366; 96372; 96375; 96376; 99223; 99233; 99238; A9270-GY; G0378; J1170; J2060; J3411; J3486; J3490; J7042; J7120